=== PATIENT | male | born 1945 | race Caucasian/White ===

== ENCOUNTER → 2017-02-20 | Outpatient (CLI) | payer OTHER, MEDICARE ==
[~2017-02-20] MED LIST: REGADENOSON 0.4 MG/5 ML SYRINGE ONE
== END | disposition home or self-care (01) ==
LOC: CFH 11:48
PROVIDERS: ATTEND Internal Medicine Cardiovascular Disease
DX: R07.9 Chest pain, unspecified (principal); R00.2 Palpitations
CPT/HCPCS: 78452; 93017; A9502; J2785

== ENCOUNTER 2018-02-18 02:12 | Inpatient (IN) | payer OTHER, MEDICARE ==
[~2018-02-18] VITALS: Ht 185.4 cm; Wt 139.3 kg
[2018-02-18] MEDS ORDERED: SODIUM CHLORIDE 0.9% 1,000ML IVBOLUS ONE ×2 (02:30→03:30)
[2018-02-18] MEDS ORDERED: PIPERACILLIN/TAZO/PMX 3.375GM 50 ML IVPB ONE (02:30)
[2018-02-18] MEDS ORDERED: VANCOMYCIN PER PHARMACY IV ONE (02:30)
[2018-02-18] MEDS ORDERED: PIPERACILLIN/TAZO/PMX 3.375GM 50 ML ONE (02:42)
[2018-02-18 02:48] LABS: MEAN CORPUSCULAR HEMOGLOBIN 28.3 pg (27.5-34.5); MEAN CORPUSCULAR HGB CONC 32.7 g/dL (33.2-36.2); MEAN CORPUSCULAR VOLUME 86.4 fL (81-97); MEAN PLATELET VOLUME 8.2 fL (7.4-10.4); PLATELET COUNT 391 x10^3/uL (130-400); RED BLOOD COUNT 5.27 x10^6/uL (4.38-5.82)
[2018-02-18 02:57] LABS: ALANINE AMINOTRANSFERASE 34 U/L (12-78); ALBUMIN 3.4 g/dL (3.4-5.0); ANION GAP 11 mmol/L (5-15); CALCIUM 8.7 mg/dL (8.5-10.1); CHLORIDE 108 mmol/L (98-107); CREATININE 1.99 mg/dL (0.7-1.3)
[2018-02-18 02:59] LABS: MD YES
[2018-02-18] MEDS ORDERED: SENNOSIDES 8.8 MG/5 ML ORAL SOL NG PRN (03:00)
[2018-02-18] MEDS ORDERED: BISACODYL 10 MG SUPP PR PRN (03:00)
[2018-02-18] MEDS ORDERED: PHARMACY MAY ADJ FOR RENAL FX MC SCH (03:00)
[2018-02-18] MEDS ORDERED: VANCOMYCIN 2,500 MG in SODIUM CHLORIDE 0.9% 500 ML IV SCH (03:00)
[2018-02-18] MEDS ORDERED: LACTULOSE 20 GM/30 ML UDC NG PRN (03:00)
[2018-02-18] MEDS ORDERED: VANCOMYCIN 2,500 MG in SODIUM CHLORIDE 0.9% 500 ML IV ONE (03:00)
[2018-02-18] MEDS ORDERED: LIDOCAINE-MPF 1%, 2ML ENDO PRN (03:00)
[2018-02-18] MEDS ORDERED: SENNA/DOCUSATE TABLET NG PRN (03:00)
[2018-02-18 03:02] LABS: ALKALINE PHOSPHATASE 65 U/L (45-117); BAND#(MANUAL) 5.76 x10^3/uL; BANDS%(MANUAL) 17 % (0-7); BILIRUBIN,TOTAL 0.4 mg/dL (0.2-1.0); LYMPH#(MANUAL) 0.68 x10^3/uL (1-3.4); LYMPHS% (MANUAL) 2 % (22-44); MONOS#(MANUAL) 1.02 x10^3/uL (0.3-2.7); MONOS% (MANUAL) 3 % (2-9); SEG#(MANUAL) 26.44 x10^3/uL (1.8-6.8); SEGS% (MANUAL) 78 % (42-75); TOTAL PROTEIN 7.5 g/dL (6.4-8.2)
[2018-02-18 03:03] LABS: ANISOCYTOSIS 1+
[2018-02-18 03:04] LABS: <PLATELET ESTIMATE> ADEQUATE; LARGE PLATELETS 1+
[2018-02-18] MEDS ORDERED: methylPREDNISolone SOD SUCC 40 MG/ML ONE (03:05)
[2018-02-18] MEDS: methylPREDNISolone SOD SUCC 40 MG/ML IV SCH ×3 (03:07→20:18)
[2018-02-18 03:08] LABS: TROPONIN I 0.947 ng/mL (0.000-0.045)
[2018-02-18] MEDS: PROPOFOL 100 ML IV PRN ×6 (03:14→23:15)
[2018-02-18] MEDS: AMPICILLIN/SULBACTAM 3 GM in SODIUM CHLORIDE 0.9% 100 ML IV SCH ×3 (03:23→17:50)
[2018-02-18] MEDS ORDERED: ALLO100T30 PO (03:40)
[2018-02-18] MEDS ORDERED: ROSU10TA PO (03:40)
[2018-02-18] MEDS ORDERED: INSU100V13 SQ (03:40)
[2018-02-18] MEDS ORDERED: ALBU8.5H8 INH (03:40)
[2018-02-18] MEDS ORDERED: FLUT12AE INH (03:40)
[2018-02-18] MEDS ORDERED: FENO145T30 PO (03:40)
[2018-02-18] MEDS ORDERED: METF-163 PO (03:40)
[2018-02-18] MEDS ORDERED: INSU100C5 SQ-INSULIN (03:40)
[2018-02-18] MEDS ORDERED: ASPI-650 PO (03:40)
[2018-02-18] MEDS ORDERED: METO200T47 PO ×2 (03:40)
[2018-02-18] MEDS ORDERED: MULTIVITAMINE (03:40)
[2018-02-18] MEDS ORDERED: SPIR25TA3 PO (03:40)
[2018-02-18] MEDS ORDERED: LISI40TA PO (03:40)
[2018-02-18] MEDS ORDERED: ONDANSETRON 2MG/ML, 2ML IVPush PRN (04:30)
[2018-02-18] MEDS ORDERED: VANCOMYCIN PER PHARMACY MC PRN (04:30)
[2018-02-18] MEDS: SODIUM CHLORIDE 0.9% 1,000ML IV SCH ×2 (04:55→05:43)
[2018-02-18] MEDS ORDERED: MIDAZOLAM 1 MG/ML, 2ML ONE (04:57)
[2018-02-18] MEDS ORDERED: HEPARIN 5,000 UNITS/ML, 1ML ONE (04:58)
[2018-02-18] MEDS ORDERED: MIDAZOLAM 1 MG/ML, 5ML IVPush ONE (05:00)
[2018-02-18] MEDS: HEPARIN 5,000 UNITS/ML, 1ML SQ SCH ×3 (05:04→21:23)
[2018-02-18] MEDS: INSULIN LISPRO 100 UNITS/ML, PEN SQ-INSULIN SCH ×4 (05:36→22:44)
[2018-02-18] MEDS: NOREPINEPHRINE 4 MG in SODIUM CHLORIDE 0.9% 246 ML IV PRN ×2 (06:41→13:41)
[2018-02-18] MEDS ORDERED: PHARMACOKINETIC MONITORING MC PRN (08:30)
[2018-02-18] MEDS ORDERED: PHARMACOKINETIC CONSULTATION MC ONE (08:30)
[2018-02-18] MEDS ORDERED: VASOPRESSIN 100 UNIT in SODIUM CHLORIDE 0.9% 495 ML IV PRN (09:00)
[2018-02-18] MEDS: PANTOPRAZOLE 40 MG IV IVPush SCH (09:33)
[2018-02-18 09:57] LABS: CULTURE INDICATED? YES; MICROSCOPIC INDICATED
[2018-02-18] MEDS: VANCOMYCIN 2,000 MG in SODIUM CHLORIDE 0.9% 500 ML IV SCH (11:03)
[2018-02-18] MEDS ORDERED: PROPOFOL 10 MG/ML, 20ML ONE (14:00)
[2018-02-18] MEDS ORDERED: PROPOFOL 10 MG/ML, 100ML IV ONE (14:00)
[2018-02-18] MEDS: ALBUTEROL/IPRATROPIUM 2.5MG/0.5MG, 3 ML NPPBCONT SCH ×2 (19:30→22:40)
[2018-02-18] MEDS: INSULIN GLARGINE 100 UNITS/ML, PEN SQ-INSULIN SCH (21:22)
[2018-02-18] MEDS: FENTANYL PF 100 MCG/2ML IVPush PRN (23:28)
[2018-02-19] MEDS ORDERED: NOREPINEPHRINE 4 MG in SODIUM CHLORIDE 0.9% 246 ML IV PRN (01:00)
[2018-02-19] MEDS: PROPOFOL 100 ML IV PRN ×3 (01:12→06:08)
[2018-02-19] MEDS: AMPICILLIN/SULBACTAM 3 GM in SODIUM CHLORIDE 0.9% 100 ML IV SCH ×3 (01:44→18:14)
[2018-02-19] MEDS: ALBUTEROL/IPRATROPIUM 2.5MG/0.5MG, 3 ML NPPBCONT SCH ×2 (03:20→07:15)
[2018-02-19] MEDS: FENTANYL PF 100 MCG/2ML IVPush PRN (03:22)
[2018-02-19 04:00] VITALS: BP 124/55
[2018-02-19 04:17] LABS: MEAN CORPUSCULAR HEMOGLOBIN 28.3 pg (27.5-34.5); MEAN CORPUSCULAR HGB CONC 32.9 g/dL (33.2-36.2); MEAN CORPUSCULAR VOLUME 85.9 fL (81-97); MEAN PLATELET VOLUME 8.5 fL (7.4-10.4); PLATELET COUNT 317 x10^3/uL (130-400); RED BLOOD COUNT 4.61 x10^6/uL (4.38-5.82); RED CELL DISTRIBUTION WIDTH 16.3 % (9.4-14.8)
[2018-02-19 04:29] LABS: ANION GAP 9 mmol/L (5-15); CALCIUM 8.5 mg/dL (8.5-10.1); CHLORIDE 113 mmol/L (98-107); CREATININE 1.59 mg/dL (0.7-1.3)
[2018-02-19] MEDS: methylPREDNISolone SOD SUCC 40 MG/ML IV SCH ×2 (05:18→17:56)
[2018-02-19] MEDS: INSULIN LISPRO 100 UNITS/ML, PEN SQ-INSULIN SCH ×4 (05:23→23:37)
[2018-02-19] MEDS: HEPARIN 5,000 UNITS/ML, 1ML SQ SCH ×3 (05:29→20:49)
[2018-02-19 05:36] LABS: MD YES
[2018-02-19 05:39] LABS: BAND#(MANUAL) 2.17 x10^3/uL; BANDS%(MANUAL) 7 % (0-7); LYMPH#(MANUAL) 3.72 x10^3/uL (1-3.4); LYMPHS% (MANUAL) 12 % (22-44); METAMYELOCYTES# (MANUAL) 0.31 x10^3/uL (0-0); METAMYELOCYTES% (MANUAL) 1 % (0-1); MONOS#(MANUAL) 0.62 x10^3/uL (0.3-2.7); MONOS% (MANUAL) 2 % (2-9); SEG#(MANUAL) 24.18 x10^3/uL (1.8-6.8); SEGS% (MANUAL) 78 % (42-75)
[2018-02-19 05:40] LABS: <PLATELET ESTIMATE> ADEQUATE; ANISOCYTOSIS 1+; LARGE PLATELETS 1+
[2018-02-19] MEDS ORDERED: INSULIN GLARGINE 100 UNITS/ML, PEN SQ-INSULIN SCH (07:00)
[2018-02-19] MEDS: PANTOPRAZOLE 40 MG IV IVPush SCH (08:43)
[2018-02-19] MEDS ORDERED: FUROSEMIDE 20 MG/2 ML IV ONE (10:00)
[2018-02-19] MEDS: VANCOMYCIN 2,000 MG in SODIUM CHLORIDE 0.9% 500 ML IV SCH (10:59)
[2018-02-19] MEDS ORDERED: ALBUTEROL/IPRATROPIUM 2.5MG/0.5MG, 3 ML NPPB SCH (11:30)
[2018-02-19] MEDS ORDERED: VANCOMYCIN 2,200 MG in SODIUM CHLORIDE 0.9% 500 ML IV SCH (15:05)
[2018-02-19] MEDS ORDERED: ASPIRIN 325 MG TABLET ONE (17:51)
[2018-02-19] MEDS ORDERED: ASPIRIN 325 MG TABLET EC ONE (17:51)
[2018-02-19] MEDS: ASPIRIN 81 MG TABLET CHEW PO SCH (17:56)
[2018-02-19] MEDS: ALBUTEROL/IPRATROPIUM 2.5MG/0.5MG, 3 ML NPPB SCH (19:38)
[2018-02-19] MEDS: INSULIN GLARGINE 100 UNITS/ML, PEN SQ-INSULIN SCH (20:54)
[2018-02-20] MEDS: AMPICILLIN/SULBACTAM 3 GM in SODIUM CHLORIDE 0.9% 100 ML IV SCH ×4 (02:12→22:24)
[2018-02-20 04:00] VITALS: BP 154/75
[2018-02-20] MEDS: INSULIN LISPRO 100 UNITS/ML, PEN SQ-INSULIN SCH ×4 (04:36→21:24)
[2018-02-20] MEDS: methylPREDNISolone SOD SUCC 40 MG/ML IV SCH ×2 (04:37→16:00)
[2018-02-20 04:39] LABS: MEAN CORPUSCULAR HEMOGLOBIN 28.2 pg (27.5-34.5); MEAN CORPUSCULAR HGB CONC 32.9 g/dL (33.2-36.2); MEAN CORPUSCULAR VOLUME 85.6 fL (81-97); MEAN PLATELET VOLUME 8.7 fL (7.4-10.4); PLATELET COUNT 295 x10^3/uL (130-400); RED BLOOD COUNT 4.49 x10^6/uL (4.38-5.82)
[2018-02-20 04:46] LABS: ANION GAP 7 mmol/L (5-15); CALCIUM 8.8 mg/dL (8.5-10.1); CHLORIDE 105 mmol/L (98-107)
[2018-02-20] MEDS: HEPARIN 5,000 UNITS/ML, 1ML SQ SCH ×3 (05:15→23:39)
[2018-02-20 05:43] LABS: MD YES
[2018-02-20 05:45] LABS: <PLATELET ESTIMATE> ADEQUATE; ANISOCYTOSIS 1+; BAND#(MANUAL) 0.75 x10^3/uL; BANDS%(MANUAL) 3 % (0-7); LYMPHS% (MANUAL) 2 % (22-44); MONOS#(MANUAL) 1.25 x10^3/uL (0.3-2.7); MONOS% (MANUAL) 5 % (2-9); SEG#(MANUAL) 22.41 x10^3/uL (1.8-6.8); SEGS% (MANUAL) 90 % (42-75)
[2018-02-20 05:46] LABS: LARGE PLATELETS 1+
[2018-02-20] MEDS: ALBUTEROL/IPRATROPIUM 2.5MG/0.5MG, 3 ML NPPB SCH ×4 (07:20→19:58)
[2018-02-20] MEDS: PANTOPRAZOLE 40 MG IV IVPush SCH (10:29)
[2018-02-20] MEDS: ASPIRIN 81 MG TABLET CHEW PO SCH (10:30)
[2018-02-20] MEDS ORDERED: VANCOMYCIN 2,200 MG in SODIUM CHLORIDE 0.9% 500 ML IV SCH (11:00)
[2018-02-20 12:02] VITALS: BP 173/78
[2018-02-20 19:15] VITALS: BP 163/90
[2018-02-20] MEDS ORDERED: INSULIN GLARGINE 100 UNITS/ML, PEN SQ-INSULIN SCH (21:00)
[2018-02-20] MEDS ORDERED: hydrALAzine 20 MG/ML, 1ML IV PRN (21:00)
[2018-02-20 22:34] VITALS: BP 144/74
[2018-02-21 00:11] VITALS: BP 157/67
[2018-02-21] MEDS: methylPREDNISolone SOD SUCC 40 MG/ML IV SCH (04:42)
[2018-02-21] MEDS: AMPICILLIN/SULBACTAM 3 GM in SODIUM CHLORIDE 0.9% 100 ML IV SCH ×4 (04:43→22:00)
[2018-02-21 05:48] LABS: MEAN CORPUSCULAR HEMOGLOBIN 28.2 pg (27.5-34.5); MEAN CORPUSCULAR VOLUME 85.6 fL (81-97); MEAN PLATELET VOLUME 8.5 fL (7.4-10.4); PLATELET COUNT 331 x10^3/uL (130-400); RED BLOOD COUNT 5.03 x10^6/uL (4.38-5.82); RED CELL DISTRIBUTION WIDTH 15.6 % (9.4-14.8)
[2018-02-21 05:59] LABS: CHLORIDE 102 mmol/L (98-107)
[2018-02-21 06:08] LABS: ALANINE AMINOTRANSFERASE 44 U/L (12-78); ALBUMIN 2.8 g/dL (3.4-5.0); ALKALINE PHOSPHATASE 66 U/L (45-117); ANION GAP 8 mmol/L (5-15); BILIRUBIN,TOTAL 0.7 mg/dL (0.2-1.0); CREATININE 1.09 mg/dL (0.7-1.3); TOTAL PROTEIN 7.2 g/dL (6.4-8.2)
[2018-02-21 06:09] LABS: BASOPHILS # (AUTO) 0.03 x10^3/uL (0-0.1); BASOPHILS % (AUTO) 0 % (0-1); EOSINOPHILS # (AUTO) 0.01 x10^3/uL (0-0.4); EOSINOPHILS % (AUTO) 0 % (1-7); LYMPHOCYTES # (AUTO) 1.53 x10^3/uL (1-3.4); LYMPHOCYTES % (AUTO) 7 % (22-44); MD SCAN; MONOCYTES # (AUTO) 0.95 x10^3/uL (0.2-0.8); MONOCYTES % (AUTO) 5 % (2-9); NEUTROPHILS # (AUTO) 18.52 x10^3/uL (1.8-6.8); NEUTROPHILS % (AUTO) 88 % (42-75)
[2018-02-21 07:09] VITALS: BP 126/66
[2018-02-21] MEDS: ALBUTEROL/IPRATROPIUM 2.5MG/0.5MG, 3 ML NPPB SCH ×4 (07:10→18:46)
[2018-02-21] MEDS: PANTOPRAZOLE 40 MG IV IVPush SCH (08:39)
[2018-02-21] MEDS: INSULIN LISPRO 100 UNITS/ML, PEN SQ-INSULIN SCH ×4 (08:39→20:21)
[2018-02-21] MEDS: HEPARIN 5,000 UNITS/ML, 1ML SQ SCH ×2 (08:40→16:27)
[2018-02-21] MEDS: ASPIRIN 81 MG TABLET CHEW PO SCH (08:40)
[2018-02-21 08:46] VITALS: BP 184/69
[2018-02-21] MEDS ORDERED: metFORMIN 500 MG TABLET PO SCH (10:30)
[2018-02-21] MEDS ORDERED: POLYETHYLENE GLYCOL 17 GM PACKET PO PRN (10:30)
[2018-02-21] MEDS: TEMPLATE NON-FORMULARY MED. (Fluticasone Propionate (Flovent Hfa 110 Mcg/Inh) 1 PUFF) INH SCH (10:30)
[2018-02-21] MEDS: ASPIRIN 325 MG TABLET EC PO SCH (10:30)
[2018-02-21] MEDS ORDERED: INSULIN GLARGINE 100 UNITS/ML, PEN SQ-INSULIN SCH ×2 (10:30→11:00)
[2018-02-21] MEDS: SENNA/DOCUSATE TABLET PO SCH (10:30)
[2018-02-21] MEDS ORDERED: BISACODYL 10 MG SUPP PR PRN (10:30)
[2018-02-21] MEDS: METOPROLOL SUCCINATE 100 MG TAB.ER.24H PO SCH (12:52)
[2018-02-21] MEDS: FUROSEMIDE 20 MG TABLET PO SCH (12:52)
[2018-02-21] MEDS: LISINOPRIL 20 MG TABLET PO SCH (12:52)
[2018-02-21] MEDS: ALLOPURINOL 300 MG TABLET PO SCH (12:52)
[2018-02-21] MEDS: SPIRONOLACTONE 25 MG TABLET PO SCH ×2 (12:52→20:22)
[2018-02-21] MEDS: FENOFIBRATE 145 MG TABLET PO SCH (12:52)
[2018-02-21 15:01] VITALS: BP 138/68
[2018-02-21 19:00] VITALS: BP_SYST 159; BP_SYST 191; BP_DIAS 69; BP_DIAS 72
[2018-02-21] MEDS: INSULIN GLARGINE 100 UNITS/ML, PEN SQ-INSULIN SCH (20:22)
[2018-02-21] MEDS: TEMPLATE NON-FORMULARY MED. (Rosuvastatin Calcium** (Crestor**) 10 MG) PO SCH (20:22)
[2018-02-22] MEDS: HEPARIN 5,000 UNITS/ML, 1ML SQ SCH ×3 (00:23→17:53)
[2018-02-22 00:24] VITALS: BP 143/82
[2018-02-22] MEDS: AMPICILLIN/SULBACTAM 3 GM in SODIUM CHLORIDE 0.9% 100 ML IV SCH ×4 (04:16→23:48)
[2018-02-22] MEDS: ALBUTEROL/IPRATROPIUM 2.5MG/0.5MG, 3 ML NPPB SCH ×4 (06:00→18:54)
[2018-02-22 06:16] LABS: MEAN CORPUSCULAR HEMOGLOBIN 27.9 pg (27.5-34.5); MEAN CORPUSCULAR HGB CONC 32.9 g/dL (33.2-36.2); MEAN CORPUSCULAR VOLUME 84.9 fL (81-97); MEAN PLATELET VOLUME 8.7 fL (7.4-10.4); PLATELET COUNT 370 x10^3/uL (130-400); RED CELL DISTRIBUTION WIDTH 15.4 % (9.4-14.8)
[2018-02-22 06:29] LABS: CHLORIDE 100 mmol/L (98-107)
[2018-02-22 06:36] LABS: ANION GAP 10 mmol/L (5-15); CALCIUM 9.5 mg/dL (8.5-10.1); CREATININE 1.28 mg/dL (0.7-1.3)
[2018-02-22 06:40] LABS: MD YES
[2018-02-22 06:42] LABS: <PLATELET ESTIMATE> ADEQUATE; ANISOCYTOSIS 1+; LARGE PLATELETS 1+; LYMPH#(MANUAL) 2.29 x10^3/uL (1-3.4); LYMPHS% (MANUAL) 10 % (22-44); METAMYELOCYTES# (MANUAL) 0.46 x10^3/uL (0-0); METAMYELOCYTES% (MANUAL) 2 % (0-1); MONOS#(MANUAL) 1.15 x10^3/uL (0.3-2.7); MONOS% (MANUAL) 5 % (2-9); SEG#(MANUAL) 19.01 x10^3/uL (1.8-6.8); SEGS% (MANUAL) 83 % (42-75)
[2018-02-22 06:43] LABS: POLYCHROMASIA 1+
[2018-02-22] MEDS ORDERED: REGADENOSON 0.4 MG/5 ML SYRINGE ONE (08:00)
[2018-02-22] MEDS: INSULIN GLARGINE 100 UNITS/ML, PEN SQ-INSULIN SCH ×3 (09:00→21:07)
[2018-02-22] MEDS: LISINOPRIL 20 MG TABLET PO SCH ×2 (09:00→11:55)
[2018-02-22] MEDS: SENNA/DOCUSATE TABLET PO SCH (09:00)
[2018-02-22] MEDS: TEMPLATE NON-FORMULARY MED. (Fluticasone Propionate (Flovent Hfa 110 Mcg/Inh) 1 PUFF) INH SCH (09:00)
[2018-02-22 09:30] VITALS: BP 143/72
[2018-02-22] MEDS ORDERED: INSU100I13 SQ-INSULIN (10:16)
[2018-02-22] MEDS ORDERED: BISA10SU65 PR (10:16)
[2018-02-22] MEDS ORDERED: PRED5TAB PO (10:16)
[2018-02-22] MEDS ORDERED: FURO20TA3 PO (10:16)
[2018-02-22] MEDS ORDERED: INSU100I11 SQ-INSULIN (10:16)
[2018-02-22] MEDS ORDERED: SENN1TAB7 PO (10:16)
[2018-02-22] MEDS ORDERED: IPRA3AMP NPPB (10:16)
[2018-02-22] MEDS ORDERED: AMOX1TAB64 PO (10:18)
[2018-02-22] MEDS ORDERED: INSULIN GLARGINE 100 UNITS/ML, PEN SQ-INSULIN SCH ×2 (10:30→21:00)
[2018-02-22] MEDS: INSULIN LISPRO 100 UNITS/ML, PEN SQ-INSULIN SCH ×4 (11:54→21:06)
[2018-02-22] MEDS: METOPROLOL SUCCINATE 100 MG TAB.ER.24H PO SCH (11:55)
[2018-02-22] MEDS: FENOFIBRATE 145 MG TABLET PO SCH (11:56)
[2018-02-22] MEDS: ASPIRIN 325 MG TABLET EC PO SCH (11:56)
[2018-02-22] MEDS: SPIRONOLACTONE 25 MG TABLET PO SCH ×2 (11:56→21:07)
[2018-02-22] MEDS: FUROSEMIDE 20 MG TABLET PO SCH (11:56)
[2018-02-22] MEDS: PANTOPRAZOLE 40 MG IV IVPush SCH (11:57)
[2018-02-22] MEDS: ALLOPURINOL 300 MG TABLET PO SCH (12:10)
[2018-02-22 14:37] VITALS: BP 160/68
[2018-02-22 20:00] VITALS: BP 122/60
[2018-02-22] MEDS: TEMPLATE NON-FORMULARY MED. (Rosuvastatin Calcium** (Crestor**) 10 MG) PO SCH (20:59)
[2018-02-23 02:00] VITALS: BP 127/73
[2018-02-23] MEDS: HEPARIN 5,000 UNITS/ML, 1ML SQ SCH ×4 (03:12→21:01)
[2018-02-23] MEDS: ALBUTEROL/IPRATROPIUM 2.5MG/0.5MG, 3 ML NPPB SCH ×4 (06:00→19:13)
[2018-02-23] MEDS: AMPICILLIN/SULBACTAM 3 GM in SODIUM CHLORIDE 0.9% 100 ML IV SCH ×3 (06:05→17:35)
[2018-02-23] MEDS: TEMPLATE NON-FORMULARY MED. (Fluticasone Propionate (Flovent Hfa 110 Mcg/Inh) 1 PUFF) INH SCH (09:00)
[2018-02-23 09:31] VITALS: BP 133/65
[2018-02-23] MEDS: SENNA/DOCUSATE TABLET PO SCH (09:43)
[2018-02-23] MEDS: ASPIRIN 325 MG TABLET EC PO SCH (09:44)
[2018-02-23] MEDS: ALLOPURINOL 300 MG TABLET PO SCH (09:44)
[2018-02-23] MEDS: FUROSEMIDE 20 MG TABLET PO SCH (09:44)
[2018-02-23] MEDS: METOPROLOL SUCCINATE 100 MG TAB.ER.24H PO SCH (09:44)
[2018-02-23] MEDS: FENOFIBRATE 145 MG TABLET PO SCH (09:44)
[2018-02-23] MEDS: SPIRONOLACTONE 25 MG TABLET PO SCH ×2 (09:45→21:01)
[2018-02-23] MEDS: PANTOPROZOLE 40MG TABLET PO SCH (09:45)
[2018-02-23] MEDS: INSULIN GLARGINE 100 UNITS/ML, PEN SQ-INSULIN SCH ×2 (09:46→21:03)
[2018-02-23] MEDS: INSULIN LISPRO 100 UNITS/ML, PEN SQ-INSULIN SCH ×4 (09:46→21:02)
[2018-02-23 13:39] VITALS: BP 123/76
[2018-02-23 20:42] VITALS: BP 124/68
[2018-02-23] MEDS: TEMPLATE NON-FORMULARY MED. (Rosuvastatin Calcium** (Crestor**) 10 MG) PO SCH (21:00)
[2018-02-24] MEDS: AMPICILLIN/SULBACTAM 3 GM in SODIUM CHLORIDE 0.9% 100 ML IV SCH ×5 (00:02→23:47)
[2018-02-24 01:25] VITALS: BP 131/73
[2018-02-24 05:27] LABS: MEAN CORPUSCULAR HEMOGLOBIN 27.9 pg (27.5-34.5); MEAN CORPUSCULAR HGB CONC 32.7 g/dL (33.2-36.2); MEAN CORPUSCULAR VOLUME 85.3 fL (81-97); PLATELET COUNT 374 x10^3/uL (130-400); RED BLOOD COUNT 5.66 x10^6/uL (4.38-5.82); RED CELL DISTRIBUTION WIDTH 15.8 % (9.4-14.8)
[2018-02-24 05:32] LABS: ANION GAP 10 mmol/L (5-15); CHLORIDE 96 mmol/L (98-107)
[2018-02-24 05:35] LABS: CALCIUM 9.6 mg/dL (8.5-10.1)
[2018-02-24] MEDS: ALBUTEROL/IPRATROPIUM 2.5MG/0.5MG, 3 ML NPPB SCH ×4 (06:00→21:00)
[2018-02-24] MEDS: HEPARIN 5,000 UNITS/ML, 1ML SQ SCH ×3 (06:16→23:13)
[2018-02-24 06:55] VITALS: BP 134/61
[2018-02-24 07:06] LABS: MD YES
[2018-02-24 07:08] LABS: ANISOCYTOSIS 1+; BAND#(MANUAL) 1.29 x10^3/uL; BANDS%(MANUAL) 5 % (0-7); EOS#(MANUAL) 0.51 x10^3/uL (0.0-0.4); EOS% (MANUAL) 2 % (1-7); LYMPH#(MANUAL) 3.34 x10^3/uL (1-3.4); LYMPHS% (MANUAL) 13 % (22-44); METAMYELOCYTES# (MANUAL) 0.26 x10^3/uL (0-0); METAMYELOCYTES% (MANUAL) 1 % (0-1); MONOS#(MANUAL) 0.77 x10^3/uL (0.3-2.7); MONOS% (MANUAL) 3 % (2-9); NRBC % (MANUAL) 1 % (0-1); POLYCHROMASIA 1+; SEG#(MANUAL) 19.53 x10^3/uL (1.8-6.8); SEGS% (MANUAL) 76 % (42-75)
[2018-02-24 07:09] LABS: <PLATELET ESTIMATE> ADEQUATE; LARGE PLATELETS 1+
[2018-02-24] MEDS: INSULIN LISPRO 100 UNITS/ML, PEN SQ-INSULIN SCH ×4 (08:59→20:24)
[2018-02-24] MEDS ORDERED: FUROSEMIDE 20 MG/2 ML IV ONE (12:00)
[2018-02-24] MEDS: TEMPLATE NON-FORMULARY MED. (Fluticasone Propionate (Flovent Hfa 110 Mcg/Inh) 1 PUFF) INH SCH (12:21)
[2018-02-24] MEDS: FUROSEMIDE 20 MG TABLET PO SCH (12:21)
[2018-02-24] MEDS: SENNA/DOCUSATE TABLET PO SCH (12:33)
[2018-02-24] MEDS: PANTOPROZOLE 40MG TABLET PO SCH (12:33)
[2018-02-24] MEDS: METOPROLOL SUCCINATE 100 MG TAB.ER.24H PO SCH (12:33)
[2018-02-24] MEDS: FENOFIBRATE 145 MG TABLET PO SCH (12:33)
[2018-02-24] MEDS: ALLOPURINOL 300 MG TABLET PO SCH (12:33)
[2018-02-24] MEDS: ASPIRIN 325 MG TABLET EC PO SCH (12:34)
[2018-02-24] MEDS: SPIRONOLACTONE 25 MG TABLET PO SCH ×2 (12:34→20:26)
[2018-02-24] MEDS: LISINOPRIL 20 MG TABLET PO SCH (12:34)
[2018-02-24] MEDS: INSULIN GLARGINE 100 UNITS/ML, PEN SQ-INSULIN SCH ×2 (13:26→20:25)
[2018-02-24 14:31] VITALS: BP 98/57
[2018-02-24 16:12] VITALS: BP 116/67
[2018-02-24 19:20] VITALS: BP 120/67
[2018-02-24] MEDS: TEMPLATE NON-FORMULARY MED. (Rosuvastatin Calcium** (Crestor**) 10 MG) PO SCH (20:27)
[2018-02-25 02:00] VITALS: BP 117/72
[2018-02-25 05:21] LABS: MEAN CORPUSCULAR HGB CONC 32.7 g/dL (33.2-36.2); MEAN CORPUSCULAR VOLUME 85.8 fL (81-97); MEAN PLATELET VOLUME 8.7 fL (7.4-10.4); PLATELET COUNT 326 x10^3/uL (130-400); RED BLOOD COUNT 5.71 x10^6/uL (4.38-5.82); RED CELL DISTRIBUTION WIDTH 15.7 % (9.4-14.8)
[2018-02-25 05:32] LABS: CHLORIDE 100 mmol/L (98-107)
[2018-02-25 05:40] LABS: ANION GAP 9 mmol/L (5-15); CALCIUM 9.4 mg/dL (8.5-10.1); CREATININE 1.37 mg/dL (0.7-1.3)
[2018-02-25 05:47] LABS: MD YES
[2018-02-25 05:48] LABS: BAND#(MANUAL) 0.61 x10^3/uL; BANDS%(MANUAL) 3 % (0-7); EOS#(MANUAL) 0.41 x10^3/uL (0.0-0.4); EOS% (MANUAL) 2 % (1-7); LYMPH#(MANUAL) 3.45 x10^3/uL (1-3.4); LYMPHS% (MANUAL) 17 % (22-44); METAMYELOCYTES% (MANUAL) 1 % (0-1); MONOS#(MANUAL) 0.41 x10^3/uL (0.3-2.7); MONOS% (MANUAL) 2 % (2-9); SEG#(MANUAL) 15.23 x10^3/uL (1.8-6.8); SEGS% (MANUAL) 75 % (42-75)
[2018-02-25 05:49] LABS: <PLATELET ESTIMATE> ADEQUATE; ANISOCYTOSIS 1+; LARGE PLATELETS 1+; POLYCHROMASIA 1+
[2018-02-25] MEDS: AMPICILLIN/SULBACTAM 3 GM in SODIUM CHLORIDE 0.9% 100 ML IV SCH ×3 (06:13→17:31)
[2018-02-25] MEDS: HEPARIN 5,000 UNITS/ML, 1ML SQ SCH ×3 (06:13→21:31)
[2018-02-25] MEDS: PANTOPROZOLE 40MG TABLET PO SCH (07:42)
[2018-02-25 08:00] VITALS: BP 101/65
[2018-02-25] MEDS: INSULIN LISPRO 100 UNITS/ML, PEN SQ-INSULIN SCH ×4 (08:10→21:29)
[2018-02-25] MEDS: INSULIN GLARGINE 100 UNITS/ML, PEN SQ-INSULIN SCH ×2 (08:10→21:28)
[2018-02-25] MEDS: SPIRONOLACTONE 25 MG TABLET PO SCH (08:11)
[2018-02-25] MEDS: METOPROLOL SUCCINATE 100 MG TAB.ER.24H PO SCH (08:11)
[2018-02-25] MEDS: FUROSEMIDE 20 MG TABLET PO SCH (08:11)
[2018-02-25] MEDS: FENOFIBRATE 145 MG TABLET PO SCH (08:11)
[2018-02-25] MEDS: SENNA/DOCUSATE TABLET PO SCH (08:11)
[2018-02-25] MEDS: LISINOPRIL 20 MG TABLET PO SCH (08:11)
[2018-02-25] MEDS: ALLOPURINOL 300 MG TABLET PO SCH (08:11)
[2018-02-25] MEDS: ASPIRIN 325 MG TABLET EC PO SCH (08:12)
[2018-02-25] MEDS: TEMPLATE NON-FORMULARY MED. (Fluticasone Propionate (Flovent Hfa 110 Mcg/Inh) 1 PUFF) INH SCH (08:12)
[2018-02-25] MEDS ORDERED: SODIUM CHLORIDE 0.9% 1,000 ML IV ONE (08:22)
[2018-02-25] MEDS: ALBUTEROL/IPRATROPIUM 2.5MG/0.5MG, 3 ML NPPB SCH ×2 (08:50→11:00)
[2018-02-25 11:03] VITALS: BP 101/65
[2018-02-25 13:55] VITALS: BP 98/60
[2018-02-25 19:56] VITALS: BP 122/62
[2018-02-25] MEDS: TEMPLATE NON-FORMULARY MED. (Rosuvastatin Calcium** (Crestor**) 10 MG) PO SCH (21:00)
[2018-02-26 01:55] VITALS: BP 94/56
[2018-02-26] MEDS: AMPICILLIN/SULBACTAM 3 GM in SODIUM CHLORIDE 0.9% 100 ML IV SCH ×3 (02:00→20:15)
[2018-02-26 05:24] LABS: MEAN CORPUSCULAR HGB CONC 32.4 g/dL (33.2-36.2); MEAN CORPUSCULAR VOLUME 86.3 fL (81-97); MEAN PLATELET VOLUME 8.8 fL (7.4-10.4); PLATELET COUNT 349 x10^3/uL (130-400); PROTHROMBIN TIME 10.4 Seconds (9.6-11.5); RED BLOOD COUNT 5.71 x10^6/uL (4.38-5.82); RED CELL DISTRIBUTION WIDTH 15.9 % (9.4-14.8)
[2018-02-26 05:31] LABS: ANION GAP 8 mmol/L (5-15); CALCIUM 8.8 mg/dL (8.5-10.1); CHLORIDE 104 mmol/L (98-107)
[2018-02-26 05:33] LABS: CREATININE 1.26 mg/dL (0.7-1.3)
[2018-02-26 06:09] LABS: MD YES
[2018-02-26 06:11] LABS: BAND#(MANUAL) 0.19 x10^3/uL; BANDS%(MANUAL) 1 % (0-7); EOS#(MANUAL) 0.58 x10^3/uL (0.0-0.4); EOS% (MANUAL) 3 % (1-7); LYMPH#(MANUAL) 2.72 x10^3/uL (1-3.4); LYMPHS% (MANUAL) 14 % (22-44); MONOS#(MANUAL) 0.78 x10^3/uL (0.3-2.7); MONOS% (MANUAL) 4 % (2-9); MYELOCYTES# (MANUAL) 0.19 x10^3/uL (0-0); MYELOCYTES% (MANUAL) 1 % (0-0); SEG#(MANUAL) 14.94 x10^3/uL (1.8-6.8); SEGS% (MANUAL) 77 % (42-75)
[2018-02-26 06:13] LABS: <PLATELET ESTIMATE> ADEQUATE; ANISOCYTOSIS 1+; LARGE PLATELETS 1+; POLYCHROMASIA 1+
[2018-02-26] MEDS: HEPARIN 5,000 UNITS/ML, 1ML SQ SCH ×3 (06:49→22:36)
[2018-02-26] MEDS: INSULIN GLARGINE 100 UNITS/ML, PEN SQ-INSULIN SCH ×2 (07:53→21:27)
[2018-02-26] MEDS: FENOFIBRATE 145 MG TABLET PO SCH (08:06)
[2018-02-26] MEDS: INSULIN LISPRO 100 UNITS/ML, PEN SQ-INSULIN SCH ×4 (08:06→21:26)
[2018-02-26] MEDS: METOPROLOL SUCCINATE 100 MG TAB.ER.24H PO SCH (08:07)
[2018-02-26] MEDS: ASPIRIN 325 MG TABLET EC PO SCH (08:07)
[2018-02-26] MEDS: FUROSEMIDE 20 MG TABLET PO SCH (08:07)
[2018-02-26] MEDS: ALLOPURINOL 300 MG TABLET PO SCH (08:07)
[2018-02-26] MEDS: LISINOPRIL 20 MG TABLET PO SCH (08:08)
[2018-02-26] MEDS: SENNA/DOCUSATE TABLET PO SCH (08:08)
[2018-02-26] MEDS: PANTOPROZOLE 40MG TABLET PO SCH (08:08)
[2018-02-26] MEDS: TEMPLATE NON-FORMULARY MED. (Fluticasone Propionate (Flovent Hfa 110 Mcg/Inh) 1 PUFF) INH SCH (08:09)
[2018-02-26 08:26] VITALS: BP 133/76
[2018-02-26] MEDS ORDERED: SODIUM CHLORIDE 0.9% 1,000ML IVBOLUS ONE (09:30)
[2018-02-26] MEDS ORDERED: ALBUTEROL/IPRATROPIUM 2.5MG/0.5MG, 3 ML NPPB PRN (11:00)
[2018-02-26 12:34] VITALS: BP 117/76
[2018-02-26] MEDS ORDERED: TICAGRELOR 90 MG TABLET ONE (14:10)
[2018-02-26] MEDS ORDERED: VERAPAMIL 2.5 MG/ML, 2ML ONE (14:10)
[2018-02-26] MEDS ORDERED: MIDAZOLAM 1 MG/ML, 5ML ONE (14:10)
[2018-02-26] MEDS ORDERED: FENTANYL PF 100 MCG/2ML ONE (14:10)
[2018-02-26] MEDS ORDERED: HEPARIN 1,000 UNITS/ML, 10ML ONE (14:10)
[2018-02-26] MEDS ORDERED: BIVALIRUDIN 250 MG ONE ×2 (14:10→15:17)
[2018-02-26] MEDS ORDERED: BIVALIRUDIN 250 MG in DEXTROSE 5% 50 ML IV SCH (15:21)
[2018-02-26] MEDS: SODIUM CHLORIDE 0.9% 1,000 ML IV SCH (15:21)
[2018-02-26] MEDS ORDERED: ASPIRIN 325 MG TABLET EC ONE (15:23)
[2018-02-26] MEDS ORDERED: BIVALIRUDIN 500 MG in DEXTROSE 5% 100 ML IV SCH (16:09)
[2018-02-26 19:56] VITALS: BP 121/58
[2018-02-26] MEDS ORDERED: ATORVASTATIN 40 MG TABLET PO SCH (21:00)
[2018-02-26] MEDS: TICAGRELOR 90 MG TABLET PO SCH (21:15)
[2018-02-26] MEDS: TEMPLATE NON-FORMULARY MED. (Rosuvastatin Calcium** (Crestor**) 10 MG) PO SCH (21:15)
[2018-02-27 00:16] VITALS: BP 100/63
[2018-02-27] MEDS: AMPICILLIN/SULBACTAM 3 GM in SODIUM CHLORIDE 0.9% 100 ML IV SCH ×3 (02:06→14:59)
[2018-02-27] MEDS: SODIUM CHLORIDE 0.9% 1,000 ML IV SCH ×3 (02:06→15:21)
[2018-02-27] MEDS ORDERED: IBUPROFEN 200 MG TABLET ONE (02:46)
[2018-02-27] MEDS ORDERED: IBUPROFEN 200 MG TABLET PO PRN (03:00)
[2018-02-27 04:41] LABS: ALBUMIN 2.8 g/dL (3.4-5.0); ANION GAP 8 mmol/L (5-15); CALCIUM 8.9 mg/dL (8.5-10.1); CHLORIDE 103 mmol/L (98-107); CHOLESTEROL, TOTAL 167 mg/dL (140-239); CREATININE 1.25 mg/dL (0.7-1.3); TRIGLYCERIDES 204 mg/dL (50-200); VLDL CHOLESTEROL 41 mg/dL (0-25)
[2018-02-27 04:43] LABS: CHOL/HDL RATIO 5.1; HDL CHOL % 20 % (26-37); HDL CHOLESTEROL (DIRECT) 33 mg/dL (40-60); LDL CHOLESTEROL,CALCULATED 93 mg/dL (54-169); LDL/HDL RATIO 2.8 (0.5-3.0)
[2018-02-27] MEDS: HEPARIN 5,000 UNITS/ML, 1ML SQ SCH ×2 (06:43→14:53)
[2018-02-27 07:45] VITALS: BP 122/72
[2018-02-27] MEDS: INSULIN LISPRO 100 UNITS/ML, PEN SQ-INSULIN SCH ×2 (08:38→11:59)
[2018-02-27] MEDS: PANTOPROZOLE 40MG TABLET PO SCH (08:42)
[2018-02-27] MEDS: TICAGRELOR 90 MG TABLET PO SCH (08:44)
[2018-02-27] MEDS: LISINOPRIL 20 MG TABLET PO SCH (08:47)
[2018-02-27] MEDS: FUROSEMIDE 20 MG TABLET PO SCH (08:47)
[2018-02-27] MEDS: METOPROLOL SUCCINATE 100 MG TAB.ER.24H PO SCH (08:48)
[2018-02-27] MEDS: FENOFIBRATE 145 MG TABLET PO SCH (08:49)
[2018-02-27] MEDS: ALLOPURINOL 300 MG TABLET PO SCH (08:50)
[2018-02-27] MEDS: INSULIN GLARGINE 100 UNITS/ML, PEN SQ-INSULIN SCH (08:52)
[2018-02-27] MEDS: SENNA/DOCUSATE TABLET PO SCH (09:00)
[2018-02-27] MEDS ORDERED: ASPIRIN 81 MG TABLET EC PO SCH (09:00)
[2018-02-27] MEDS: TEMPLATE NON-FORMULARY MED. (Fluticasone Propionate (Flovent Hfa 110 Mcg/Inh) 1 PUFF) INH SCH (09:00)
[2018-02-27] MEDS ORDERED: TICA90TA PO (11:00)
[2018-02-27] MEDS ORDERED: ASPI-621 PO (11:02)
[2018-02-27 13:48] VITALS: BP 117/69
== END 2018-02-27 16:52 | DRG 853 ==
LOC: ED 02:55 → EDIP 03:25 → CCU 08:06 → 4EST 02-20 11:35 → 4WST 02-22 08:37 → 5SO 02-26 16:13
PROVIDERS: ADMIT Internal Medicine; ATTEND Internal Medicine
PROC: 5A1945Z Respiratory Ventilation, 24-96 Consecutive Hours (ICD-10-PCS; 2018-02-18)
PROC: 0T9B70Z Drainage of Bladder with Drainage Device, Via Natural or Artificial Opening (ICD-10-PCS; 2018-02-18)
PROC: 0BH17EZ Insertion of Endotracheal Airway into Trachea, Via Natural or Artificial Opening (ICD-10-PCS; 2018-02-18)
PROC: 02HV33Z Insertion of Infusion Device into Superior Vena Cava, Percutaneous Approach (ICD-10-PCS; 2018-02-18)
PROC: 027135Z Dilation of Coronary Artery, Two Arteries with Two Drug-eluting Intraluminal Devices, Percutaneous Approach (ICD-10-PCS; principal; 2018-02-26)
PROC: 4A023N7 Measurement of Cardiac Sampling and Pressure, Left Heart, Percutaneous Approach (ICD-10-PCS; 2018-02-26)
PROC: B2111ZZ Fluoroscopy of Multiple Coronary Arteries using Low Osmolar Contrast (ICD-10-PCS; 2018-02-26)
PROC: B2151ZZ Fluoroscopy of Left Heart using Low Osmolar Contrast (ICD-10-PCS; 2018-02-26)
DX: A41.9 Sepsis, unspecified organism (principal); R65.21 Severe sepsis with septic shock; J96.21 Acute and chronic respiratory failure with hypoxia; I21.A1 Myocardial infarction type 2; N17.0 Acute kidney failure with tubular necrosis; G62.81 Critical illness polyneuropathy; I11.0 Hypertensive heart disease with heart failure; J15.9 Unspecified bacterial pneumonia; I42.9 Cardiomyopathy, unspecified; I50.20 Unspecified systolic (congestive) heart failure; E66.01 Morbid (severe) obesity due to excess calories; L03.116 Cellulitis of left lower limb; Z68.41 Body mass index [BMI] 40.0-44.9, adult; J44.0 Chronic obstructive pulmonary disease with (acute) lower respiratory infection; J98.11 Atelectasis; Z99.11 Dependence on respirator [ventilator] status; I25.10 Atherosclerotic heart disease of native coronary artery without angina pectoris; E66.9 Obesity, unspecified; E11.65 Type 2 diabetes mellitus with hyperglycemia; E78.00 Pure hypercholesterolemia, unspecified; E78.5 Hyperlipidemia, unspecified; M10.9 Gout, unspecified; I45.9 Conduction disorder, unspecified; Z79.4 Long term (current) use of insulin; Z79.51 Long term (current) use of inhaled steroids; Z79.82 Long term (current) use of aspirin; Z87.891 Personal history of nicotine dependence; Z95.0 Presence of cardiac pacemaker; Z95.5 Presence of coronary angioplasty implant and graft; Z88.6 Allergy status to analgesic agent; Z88.8 Allergy status to other drugs, medicaments and biological substances
CPT/HCPCS: 36415; 36556; 36600; 70450; 70551; 71045; 78452; 80048; 80053; 80061; 81001; 82040; 82533; 82803; 82947; 82962; 83036; 83605; 83735; 83880; 84100; 84145; 84478; 84484; 85025; 85610; 87040; 87070; 87081; 87086; 87147; 87205; 93005; 93017; 93458; 93970; 94002; 94003; 94640; 96360; 99156; 99157; C1769; C1894; C8929; C9600; J0295; J0583; J1644; J2250; J2704; J2785; J3010; J3370; J7620; A9502; C1725; C1874; C1887; C9113; C9898; J0360; J1815; J1940; J2920; J7030; J7040; J7050; J7512; Q9967

== ENCOUNTER 2018-03-10 01:22 | Inpatient (IN) | payer OTHER, MEDICARE ==
[~2018-03-10] VITALS: Ht 195.6 cm; Wt 132.2 kg
[~2018-03-10 01:22] MED LIST changes: +ALBU8.5H8 INH; +ALLO100T30 PO; +AMOX1TAB64 PO; +ASPI-621 PO; +ASPI-650 PO; +BISA10SU65 PR; +FENO145T30 PO; +FLUT12AE INH; +FURO20TA3 PO; +INSU100C5 SQ-INSULIN; +INSU100I11 SQ-INSULIN; +INSU100I13 SQ-INSULIN; +INSU100V13 SQ; +IPRA3AMP NPPB; +LISI40TA PO; +METF-163 PO; +METO200T47 PO; +MULTIVITAMINE; +PRED5TAB PO; -REGADENOSON 0.4 MG/5 ML SYRINGE ONE; +ROSU10TA PO; +SENN1TAB7 PO; +SPIR25TA3 PO; +TICA90TA PO
[2018-03-10] MEDS ORDERED: SODIUM CHLORIDE FLUSH 10ML SYR IVF ONE (02:00)
[2018-03-10 02:14] LABS: MEAN CORPUSCULAR HEMOGLOBIN 28.3 pg (27.5-34.5); MEAN CORPUSCULAR VOLUME 85.7 fL (81-97); PLATELET COUNT 304 x10^3/uL (130-400); RED BLOOD COUNT 5.29 x10^6/uL (4.38-5.82); RED CELL DISTRIBUTION WIDTH 16.5 % (9.4-14.8)
[2018-03-10 02:22] LABS: INTERNATIONAL NORMALIZED RATIO 1.09 (0.93-1.1); PROTHROMBIN TIME 11.3 Seconds (9.6-11.5)
[2018-03-10 02:26] LABS: ALANINE AMINOTRANSFERASE 25 U/L (12-78); ANION GAP 10 mmol/L (5-15); CALCIUM 10.2 mg/dL (8.5-10.1); CHLORIDE 105 mmol/L (98-107); CREATININE 2.75 mg/dL (0.7-1.3)
[2018-03-10 02:30] LABS: ALKALINE PHOSPHATASE 71 U/L (45-117); BILIRUBIN,TOTAL 0.7 mg/dL (0.2-1.0); TOTAL PROTEIN 7.9 g/dL (6.4-8.2)
[2018-03-10] MEDS ORDERED: SODIUM CHLORIDE 0.9% 1,000 ML IV ONE ×2 (02:37→03:29)
[2018-03-10 02:57] LABS: MD YES
[2018-03-10 03:00] LABS: ANISOCYTOSIS 1+; BAND#(MANUAL) 0.36 x10^3/uL; BANDS%(MANUAL) 1 % (0-7); LYMPH#(MANUAL) 1.81 x10^3/uL (1-3.4); LYMPHS% (MANUAL) 5 % (22-44); METAMYELOCYTES# (MANUAL) 0.36 x10^3/uL (0-0); METAMYELOCYTES% (MANUAL) 1 % (0-1); MONOS#(MANUAL) 2.53 x10^3/uL (0.3-2.7); MONOS% (MANUAL) 7 % (2-9); POLYCHROMASIA 1+; REACTIVE LYMPHS # (MANUAL) 0.36 x10^3/uL (0-0); REACTIVE LYMPHS % (MANUAL) 1 % (0-0); SEG#(MANUAL) 30.77 x10^3/uL (1.8-6.8); SEGS% (MANUAL) 85 % (42-75)
[2018-03-10 03:01] LABS: <PLATELET ESTIMATE> ADEQUATE
[2018-03-10 03:02] LABS: LARGE PLATELETS 1+
[2018-03-10] MEDS ORDERED: SODIUM CHLORIDE FLUSH 10ML SYR IVF PRN (03:30)
[2018-03-10] MEDS ORDERED: INSU100I17 INJ (03:54)
[2018-03-10] MEDS ORDERED: INSU100I28 INJ (03:54)
[2018-03-10] MEDS ORDERED: TICA90TA PO (03:54)
[2018-03-10] MEDS ORDERED: HYDR-3245 PO (03:54)
[2018-03-10] MEDS ORDERED: GLUCAGON 1 MG IM PRN (06:00)
[2018-03-10] MEDS ORDERED: ACETAMINOPHEN 325 MG TABLET PO PRN (06:00)
[2018-03-10] MEDS ORDERED: DEXTROSE 50%, 50ML SYRINGE IVPush PRN (06:00)
[2018-03-10] MEDS ORDERED: TEMAZEPAM 15 MG CAPSULE PO PRN (06:00)
[2018-03-10] MEDS ORDERED: OXYcodone IR 5MG TABLET PO PRN (06:00)
[2018-03-10] MEDS ORDERED: DEXTROSE 4 GM TAB.CHEW PO PRN (06:00)
[2018-03-10] MEDS ORDERED: ONDANSETRON 2MG/ML, 2ML IVPush PRN (06:00)
[2018-03-10] MEDS ORDERED: GUAIFENESIN/DM 200-20MG, 10ML UDC PO PRN (06:00)
[2018-03-10] MEDS ORDERED: ONDANSETRON ODT 4 MG PO PRN (06:00)
[2018-03-10] MEDS ORDERED: morphine SULFATE 10 MG/ML, 1ML IVPush PRN (06:00)
[2018-03-10] MEDS ORDERED: LABETALOL 5MG/ML, 20ML IVPush PRN (06:00)
[2018-03-10] MEDS ORDERED: NITROGLYCERIN 0.4 MG BOTTLE (25 TABS) SL PRN (06:00)
[2018-03-10] MEDS: methylPREDNISolone SOD SUCC 40 MG/ML IV SCH ×2 (06:22→17:16)
[2018-03-10] MEDS: METOPROLOL TARTRATE 25 MG TABLET PO SCH ×3 (06:22→20:50)
[2018-03-10] MEDS: SODIUM CHLORIDE 0.9% 1,000 ML IV SCH ×2 (06:23→23:45)
[2018-03-10] MEDS: VANCOMYCIN 50 MG/ML ORAL SUSP PO SCH ×4 (06:41→23:52)
[2018-03-10 06:48] VITALS: BP 138/72
[2018-03-10] MEDS: INSULIN LISPRO 100 UNITS/ML, PEN SQ-INSULIN SCH ×4 (07:00→20:55)
[2018-03-10] MEDS ORDERED: ALBUTEROL/IPRATROPIUM 2.5MG/0.5MG, 3 ML ONE (07:02)
[2018-03-10 07:19] LABS: MICROSCOPIC AUTO
[2018-03-10 07:21] LABS: CULTURE INDICATED? YES
[2018-03-10] MEDS ORDERED: ALBUTEROL/IPRATROPIUM 2.5MG/0.5MG, 3 ML NPPB PRN (07:30)
[2018-03-10 08:39] VITALS: BP 118/63
[2018-03-10] MEDS: TICAGRELOR 90 MG TABLET PO SCH ×2 (10:30→20:50)
[2018-03-10] MEDS: FENOFIBRATE 145 MG TABLET PO SCH (10:30)
[2018-03-10] MEDS: ASPIRIN 81 MG TABLET EC PO SCH (10:31)
[2018-03-10] MEDS: CEFTRIAXONE PMX 1GM/50ML 50 ML IV SCH (10:31)
[2018-03-10] MEDS: SODIUM CHLORIDE FLUSH 10ML SYR IVF SCH ×2 (10:35→20:50)
[2018-03-10 12:55] VITALS: BP 120/68
[2018-03-10 13:56] LABS: TROPONIN I < 0.015 ng/mL (0.000-0.045)
[2018-03-10] MEDS: ALBUTEROL/IPRATROPIUM 2.5MG/0.5MG, 3 ML NPPB SCH ×2 (15:00→18:20)
[2018-03-10] MEDS ORDERED: INSULIN REGULAR 100 UNITS/ML, 3ML VIAL IVPush ONE (16:00)
[2018-03-10] MEDS ORDERED: DEXTROSE 50%, 50ML SYRINGE IVPush ONE (16:00)
[2018-03-10 18:34] LABS: ANION GAP 10 mmol/L (5-15); CALCIUM 9.2 mg/dL (8.5-10.1); CHLORIDE 107 mmol/L (98-107); CREATININE 1.98 mg/dL (0.7-1.3)
[2018-03-10] MEDS: TEMPLATE NON-FORMULARY MED. (Rosuvastatin Calcium** (Crestor**) 10 MG) HOMEMEDPO SCH (20:49)
[2018-03-10] MEDS: INSULIN GLARGINE 100 UNITS/ML, PEN SQ-INSULIN SCH (20:54)
[2018-03-10 21:20] VITALS: BP 164/72
[2018-03-10] MEDS ORDERED: INSULIN LISPRO 100 UNITS/ML, PEN SQ-INSULIN ONE (23:00)
[2018-03-11 01:24] VITALS: BP 104/66
[2018-03-11] MEDS: VANCOMYCIN 50 MG/ML ORAL SUSP PO SCH ×4 (05:45→23:32)
[2018-03-11] MEDS: methylPREDNISolone SOD SUCC 40 MG/ML IV SCH ×2 (05:45→17:20)
[2018-03-11] MEDS: METOPROLOL TARTRATE 25 MG TABLET PO SCH ×3 (05:45→23:23)
[2018-03-11] MEDS: INSULIN LISPRO 100 UNITS/ML, PEN SQ-INSULIN SCH ×5 (07:00→23:22)
[2018-03-11] MEDS: ALBUTEROL/IPRATROPIUM 2.5MG/0.5MG, 3 ML NPPB SCH ×4 (07:00→19:30)
[2018-03-11 07:53] VITALS: BP 136/79
[2018-03-11 08:10] LABS: ALANINE AMINOTRANSFERASE 30 U/L (12-78); ALBUMIN 2.6 g/dL (3.4-5.0); ANION GAP 8 mmol/L (5-15); CALCIUM 9.6 mg/dL (8.5-10.1); CHLORIDE 108 mmol/L (98-107)
[2018-03-11 08:12] LABS: ALKALINE PHOSPHATASE 80 U/L (45-117); BILIRUBIN,TOTAL 0.3 mg/dL (0.2-1.0); CREATININE 1.67 mg/dL (0.7-1.3); TOTAL PROTEIN 7.6 g/dL (6.4-8.2)
[2018-03-11 08:19] LABS: MEAN CORPUSCULAR HEMOGLOBIN 28.5 pg (27.5-34.5); MEAN CORPUSCULAR HGB CONC 33.1 g/dL (33.2-36.2); MEAN CORPUSCULAR VOLUME 86.2 fL (81-97); MEAN PLATELET VOLUME 9.1 fL (7.4-10.4); PLATELET COUNT 293 x10^3/uL (130-400); RED CELL DISTRIBUTION WIDTH 16.9 % (9.4-14.8)
[2018-03-11 08:26] LABS: MD YES
[2018-03-11 08:27] LABS: ANISOCYTOSIS 1+; BAND#(MANUAL) 0.22 x10^3/uL; BANDS%(MANUAL) 1 % (0-7); LYMPH#(MANUAL) 0.44 x10^3/uL (1-3.4); LYMPHS% (MANUAL) 2 % (22-44); MONOS#(MANUAL) 0.44 x10^3/uL (0.3-2.7); MONOS% (MANUAL) 2 % (2-9); POLYCHROMASIA 1+; SEGS% (MANUAL) 95 % (42-75)
[2018-03-11 08:28] LABS: <PLATELET ESTIMATE> ADEQUATE; LARGE PLATELETS 1+
[2018-03-11] MEDS: SODIUM CHLORIDE FLUSH 10ML SYR IVF SCH ×2 (09:35→21:00)
[2018-03-11] MEDS: SODIUM CHLORIDE 0.9% 1,000 ML IV SCH ×2 (09:35→23:32)
[2018-03-11] MEDS: TICAGRELOR 90 MG TABLET PO SCH ×2 (09:36→23:32)
[2018-03-11] MEDS: FENOFIBRATE 145 MG TABLET PO SCH (09:36)
[2018-03-11] MEDS: ASPIRIN 81 MG TABLET EC PO SCH (09:36)
[2018-03-11] MEDS: CEFTRIAXONE PMX 1GM/50ML 50 ML IV SCH (09:57)
[2018-03-11 13:20] VITALS: BP 136/72
[2018-03-11 19:53] VITALS: BP 138/82
[2018-03-11] MEDS: TEMPLATE NON-FORMULARY MED. (Rosuvastatin Calcium** (Crestor**) 10 MG) HOMEMEDPO SCH (22:43)
[2018-03-11 22:49] VITALS: BP 161/80
[2018-03-11] MEDS: INSULIN GLARGINE 100 UNITS/ML, PEN SQ-INSULIN SCH (23:32)
[2018-03-12 05:16] VITALS: BP 169/69
[2018-03-12] MEDS: METOPROLOL TARTRATE 25 MG TABLET PO SCH ×3 (05:20→21:01)
[2018-03-12] MEDS: VANCOMYCIN 50 MG/ML ORAL SUSP PO SCH ×4 (05:20→23:43)
[2018-03-12] MEDS: methylPREDNISolone SOD SUCC 40 MG/ML IV SCH ×2 (05:20→17:25)
[2018-03-12 05:23] LABS: MEAN CORPUSCULAR HEMOGLOBIN 28.5 pg (27.5-34.5); MEAN CORPUSCULAR VOLUME 86.4 fL (81-97); PLATELET COUNT 263 x10^3/uL (130-400); RED BLOOD COUNT 4.96 x10^6/uL (4.38-5.82); RED CELL DISTRIBUTION WIDTH 16.4 % (9.4-14.8)
[2018-03-12 05:39] LABS: MD YES
[2018-03-12 05:40] LABS: ANION GAP 7 mmol/L (5-15); ANISOCYTOSIS 1+; CALCIUM 9.1 mg/dL (8.5-10.1); CHLORIDE 108 mmol/L (98-107); CREATININE 1.44 mg/dL (0.7-1.3); LYMPH#(MANUAL) 0.62 x10^3/uL (1-3.4); LYMPHS% (MANUAL) 3 % (22-44); MONOS#(MANUAL) 0.21 x10^3/uL (0.3-2.7); MONOS% (MANUAL) 1 % (2-9); MYELOCYTES# (MANUAL) 0.62 x10^3/uL (0-0); MYELOCYTES% (MANUAL) 3 % (0-0); SEG#(MANUAL) 19.34 x10^3/uL (1.8-6.8); SEGS% (MANUAL) 93 % (42-75)
[2018-03-12 05:41] LABS: <PLATELET ESTIMATE> ADEQUATE; <PLT MORPHOLOGY> NORMAL PLT MORPH
[2018-03-12] MEDS: ALBUTEROL/IPRATROPIUM 2.5MG/0.5MG, 3 ML NPPB SCH ×4 (07:10→19:57)
[2018-03-12 07:43] VITALS: BP 146/76
[2018-03-12] MEDS: ASPIRIN 81 MG TABLET EC PO SCH (08:25)
[2018-03-12] MEDS: FENOFIBRATE 145 MG TABLET PO SCH (08:25)
[2018-03-12] MEDS: SODIUM CHLORIDE FLUSH 10ML SYR IVF SCH ×2 (08:25→21:04)
[2018-03-12] MEDS: TICAGRELOR 90 MG TABLET PO SCH ×2 (08:25→21:00)
[2018-03-12] MEDS: INSULIN LISPRO 100 UNITS/ML, PEN SQ-INSULIN SCH ×4 (08:36→21:14)
[2018-03-12] MEDS: CEFTRIAXONE PMX 1GM/50ML 50 ML IV SCH (10:00)
[2018-03-12] MEDS ORDERED: SODIUM CHLORIDE 0.9%, 500ML IVBOLUS ONE (13:30)
[2018-03-12] MEDS ORDERED: FUROSEMIDE 20 MG/2 ML IV ONE (13:30)
[2018-03-12 14:25] VITALS: BP 128/73
[2018-03-12] MEDS: SODIUM CHLORIDE 0.9% 1,000 ML IV SCH ×2 (16:10→23:30)
[2018-03-12 16:47] LABS: RAPID INFLUENZA A Negative (Negative)
[2018-03-12 16:51] LABS: RAPID INFLUENZA B POSITIVE (Negative)
[2018-03-12] MEDS: HEPARIN 5,000 UNITS/ML, 1ML SQ SCH ×2 (17:26→23:44)
[2018-03-12 21:00] VITALS: BP 156/87
[2018-03-12] MEDS: OSELTAMIVIR 75 MG CAPSULE PO SCH (21:00)
[2018-03-12] MEDS: TEMPLATE NON-FORMULARY MED. (Rosuvastatin Calcium** (Crestor**) 10 MG) HOMEMEDPO SCH (21:00)
[2018-03-12] MEDS: INSULIN GLARGINE 100 UNITS/ML, PEN SQ-INSULIN SCH (21:13)
[2018-03-12] MEDS ORDERED: ALBUTEROL SULFATE 2.5 MG/3 ML ONE (23:56)
[2018-03-13 01:58] VITALS: BP 154/85
[2018-03-13 05:08] LABS: BASOPHILS % (AUTO) 0 % (0-1); EOSINOPHILS % (AUTO) 0 % (1-7); LYMPHOCYTES # (AUTO) 1.05 x10^3/uL (1-3.4); LYMPHOCYTES % (AUTO) 7 % (22-44); MD NO; MEAN CORPUSCULAR HEMOGLOBIN 28.7 pg (27.5-34.5); MEAN CORPUSCULAR HGB CONC 33.3 g/dL (33.2-36.2); MEAN PLATELET VOLUME 8.9 fL (7.4-10.4); MONOCYTES # (AUTO) 0.82 x10^3/uL (0.2-0.8); MONOCYTES % (AUTO) 5 % (2-9); NEUTROPHILS # (AUTO) 14.04 x10^3/uL (1.8-6.8); NEUTROPHILS % (AUTO) 88 % (42-75); PLATELET COUNT 296 x10^3/uL (130-400); RED BLOOD COUNT 5.01 x10^6/uL (4.38-5.82); RED CELL DISTRIBUTION WIDTH 16.6 % (9.4-14.8)
[2018-03-13 05:15] LABS: ANION GAP 7 mmol/L (5-15); CALCIUM 9.5 mg/dL (8.5-10.1); CHLORIDE 106 mmol/L (98-107)
[2018-03-13 05:16] LABS: CREATININE 1.35 mg/dL (0.7-1.3)
[2018-03-13] MEDS: METOPROLOL TARTRATE 25 MG TABLET PO SCH ×3 (05:52→21:31)
[2018-03-13] MEDS: VANCOMYCIN 50 MG/ML ORAL SUSP PO SCH (05:53)
[2018-03-13] MEDS: methylPREDNISolone SOD SUCC 40 MG/ML IV SCH (05:53)
[2018-03-13] MEDS: ALBUTEROL/IPRATROPIUM 2.5MG/0.5MG, 3 ML NPPB SCH ×5 (06:53→21:44)
[2018-03-13 07:53] VITALS: BP 150/87
[2018-03-13] MEDS ORDERED: SODIUM CHLORIDE 0.9% 1,000 ML IV SCH (09:00)
[2018-03-13] MEDS: INSULIN LISPRO 100 UNITS/ML, PEN SQ-INSULIN SCH ×4 (09:25→21:33)
[2018-03-13] MEDS: TICAGRELOR 90 MG TABLET PO SCH ×2 (09:26→21:31)
[2018-03-13] MEDS: FENOFIBRATE 145 MG TABLET PO SCH (09:26)
[2018-03-13] MEDS: ASPIRIN 81 MG TABLET EC PO SCH (09:27)
[2018-03-13] MEDS: OSELTAMIVIR 75 MG CAPSULE PO SCH ×2 (09:27→21:31)
[2018-03-13] MEDS: HEPARIN 5,000 UNITS/ML, 1ML SQ SCH ×2 (09:28→17:37)
[2018-03-13] MEDS: SODIUM CHLORIDE FLUSH 10ML SYR IVF SCH ×2 (09:29→21:00)
[2018-03-13] MEDS: CEFTRIAXONE PMX 2GM/50ML 50 ML IV SCH (11:08)
[2018-03-13 12:47] VITALS: BP 158/70
[2018-03-13 18:50] VITALS: BP 164/75
[2018-03-13] MEDS: TEMPLATE NON-FORMULARY MED. (Rosuvastatin Calcium** (Crestor**) 10 MG) HOMEMEDPO SCH (21:00)
[2018-03-13] MEDS: INSULIN GLARGINE 100 UNITS/ML, PEN SQ-INSULIN SCH (21:32)
[2018-03-14] MEDS: HEPARIN 5,000 UNITS/ML, 1ML SQ SCH ×3 (00:12→16:28)
[2018-03-14 02:40] VITALS: BP 133/80
[2018-03-14 05:12] LABS: MEAN CORPUSCULAR HEMOGLOBIN 28.3 pg (27.5-34.5); MEAN CORPUSCULAR VOLUME 85.9 fL (81-97); MEAN PLATELET VOLUME 8.7 fL (7.4-10.4); PLATELET COUNT 318 x10^3/uL (130-400); RED BLOOD COUNT 5.23 x10^6/uL (4.38-5.82); RED CELL DISTRIBUTION WIDTH 16.6 % (9.4-14.8)
[2018-03-14 05:15] LABS: CHLORIDE 108 mmol/L (98-107)
[2018-03-14 05:21] LABS: ANION GAP 9 mmol/L (5-15); CALCIUM 9.5 mg/dL (8.5-10.1); CREATININE 1.18 mg/dL (0.7-1.3)
[2018-03-14 05:46] LABS: MD YES
[2018-03-14 05:47] LABS: BANDS%(MANUAL) 2 % (0-7); LYMPH#(MANUAL) 2.87 x10^3/uL (1-3.4); LYMPHS% (MANUAL) 19 % (22-44); MONOS% (MANUAL) 4 % (2-9); MYELOCYTES% (MANUAL) 2 % (0-0); SEG#(MANUAL) 11.02 x10^3/uL (1.8-6.8); SEGS% (MANUAL) 73 % (42-75)
[2018-03-14 05:48] LABS: <PLATELET ESTIMATE> ADEQUATE; <PLT MORPHOLOGY> NORMAL PLT MORPH; ANISOCYTOSIS 1+
[2018-03-14] MEDS: METOPROLOL TARTRATE 25 MG TABLET PO SCH ×3 (06:07→20:30)
[2018-03-14 07:07] VITALS: BP 184/81
[2018-03-14] MEDS: ALBUTEROL/IPRATROPIUM 2.5MG/0.5MG, 3 ML NPPB SCH ×4 (07:59→19:49)
[2018-03-14] MEDS: INSULIN LISPRO 100 UNITS/ML, PEN SQ-INSULIN SCH ×4 (08:13→20:29)
[2018-03-14] MEDS: ASPIRIN 81 MG TABLET EC PO SCH (08:14)
[2018-03-14] MEDS: FENOFIBRATE 145 MG TABLET PO SCH (08:14)
[2018-03-14] MEDS: TICAGRELOR 90 MG TABLET PO SCH ×2 (08:14→20:30)
[2018-03-14] MEDS: OSELTAMIVIR 75 MG CAPSULE PO SCH ×2 (08:14→20:30)
[2018-03-14] MEDS: CEFTRIAXONE PMX 2GM/50ML 50 ML IV SCH (10:03)
[2018-03-14] MEDS: SODIUM CHLORIDE FLUSH 10ML SYR IVF SCH ×2 (10:03→20:30)
[2018-03-14 13:02] VITALS: BP 137/70
[2018-03-14 19:23] VITALS: BP 132/63
[2018-03-14] MEDS: TEMPLATE NON-FORMULARY MED. (Rosuvastatin Calcium** (Crestor**) 10 MG) HOMEMEDPO SCH (20:22)
[2018-03-14] MEDS: INSULIN GLARGINE 100 UNITS/ML, PEN SQ-INSULIN SCH (20:28)
[2018-03-15 00:33] VITALS: BP 156/80
[2018-03-15] MEDS: HEPARIN 5,000 UNITS/ML, 1ML SQ SCH ×3 (00:43→16:38)
[2018-03-15 04:56] LABS: MEAN CORPUSCULAR HEMOGLOBIN 28.1 pg (27.5-34.5); MEAN CORPUSCULAR HGB CONC 32.9 g/dL (33.2-36.2); MEAN CORPUSCULAR VOLUME 85.7 fL (81-97); MEAN PLATELET VOLUME 8.6 fL (7.4-10.4); PLATELET COUNT 298 x10^3/uL (130-400); RED BLOOD COUNT 5.66 x10^6/uL (4.38-5.82); RED CELL DISTRIBUTION WIDTH 16.6 % (9.4-14.8)
[2018-03-15 04:57] LABS: ANION GAP 8 mmol/L (5-15); CALCIUM 9.2 mg/dL (8.5-10.1); CHLORIDE 106 mmol/L (98-107)
[2018-03-15 04:58] LABS: CREATININE 1.18 mg/dL (0.7-1.3)
[2018-03-15 05:34] LABS: MD YES
[2018-03-15 05:36] LABS: BAND#(MANUAL) 0.56 x10^3/uL; BANDS%(MANUAL) 3 % (0-7); EOS#(MANUAL) 0.37 x10^3/uL (0.0-0.4); EOS% (MANUAL) 2 % (1-7); LYMPH#(MANUAL) 3.52 x10^3/uL (1-3.4); LYMPHS% (MANUAL) 19 % (22-44); MONOS#(MANUAL) 1.11 x10^3/uL (0.3-2.7); MONOS% (MANUAL) 6 % (2-9); MYELOCYTES# (MANUAL) 0.37 x10^3/uL (0-0); MYELOCYTES% (MANUAL) 2 % (0-0); SEG#(MANUAL) 12.58 x10^3/uL (1.8-6.8); SEGS% (MANUAL) 68 % (42-75)
[2018-03-15 05:37] LABS: ANISOCYTOSIS 1+
[2018-03-15 05:38] LABS: <PLATELET ESTIMATE> ADEQUATE; <PLT MORPHOLOGY> NORMAL PLT MORPH
[2018-03-15] MEDS: METOPROLOL TARTRATE 25 MG TABLET PO SCH ×3 (05:38→19:48)
[2018-03-15 06:35] VITALS: BP 151/72
[2018-03-15] MEDS: ALBUTEROL/IPRATROPIUM 2.5MG/0.5MG, 3 ML NPPB SCH ×4 (07:59→21:11)
[2018-03-15] MEDS: SODIUM CHLORIDE FLUSH 10ML SYR IVF SCH ×2 (08:28→19:47)
[2018-03-15] MEDS: FENOFIBRATE 145 MG TABLET PO SCH (08:28)
[2018-03-15] MEDS: TICAGRELOR 90 MG TABLET PO SCH ×2 (08:28→19:47)
[2018-03-15] MEDS: ASPIRIN 81 MG TABLET EC PO SCH (08:28)
[2018-03-15] MEDS: OSELTAMIVIR 75 MG CAPSULE PO SCH ×2 (08:28→19:48)
[2018-03-15] MEDS: INSULIN LISPRO 100 UNITS/ML, PEN SQ-INSULIN SCH ×4 (08:28→19:56)
[2018-03-15] MEDS: CEFTRIAXONE PMX 2GM/50ML 50 ML IV SCH (10:40)
[2018-03-15 12:18] VITALS: BP_SYST 127; BP_SYST 137; BP_SYST 138; BP_DIAS 69; BP_DIAS 70; BP_DIAS 72
[2018-03-15] MEDS: INSULIN GLARGINE 100 UNITS/ML, PEN SQ-INSULIN SCH (19:55)
[2018-03-15 20:00] VITALS: BP 138/77
[2018-03-15] MEDS: TEMPLATE NON-FORMULARY MED. (Rosuvastatin Calcium** (Crestor**) 10 MG) HOMEMEDPO SCH (20:01)
[2018-03-16] MEDS: HEPARIN 5,000 UNITS/ML, 1ML SQ SCH ×3 (00:52→17:20)
[2018-03-16 01:58] VITALS: BP 144/75
[2018-03-16 05:17] LABS: ANION GAP 8 mmol/L (5-15); CALCIUM 9.1 mg/dL (8.5-10.1); CHLORIDE 104 mmol/L (98-107); CREATININE 1.24 mg/dL (0.7-1.3)
[2018-03-16 05:18] LABS: MEAN CORPUSCULAR HEMOGLOBIN 28.2 pg (27.5-34.5); MEAN CORPUSCULAR HGB CONC 32.8 g/dL (33.2-36.2); MEAN CORPUSCULAR VOLUME 85.9 fL (81-97); MEAN PLATELET VOLUME 8.4 fL (7.4-10.4); PLATELET COUNT 304 x10^3/uL (130-400); RED BLOOD COUNT 5.59 x10^6/uL (4.38-5.82); RED CELL DISTRIBUTION WIDTH 16.4 % (9.4-14.8)
[2018-03-16] MEDS: METOPROLOL TARTRATE 25 MG TABLET PO SCH ×3 (05:21→21:29)
[2018-03-16 05:43] LABS: MD YES
[2018-03-16 05:45] LABS: BAND#(MANUAL) 0.22 x10^3/uL; BANDS%(MANUAL) 1 % (0-7); EOS#(MANUAL) 1.09 x10^3/uL (0.0-0.4); EOS% (MANUAL) 5 % (1-7); LYMPH#(MANUAL) 4.58 x10^3/uL (1-3.4); LYMPHS% (MANUAL) 21 % (22-44); METAMYELOCYTES# (MANUAL) 0.65 x10^3/uL (0-0); METAMYELOCYTES% (MANUAL) 3 % (0-1); MONOS#(MANUAL) 1.09 x10^3/uL (0.3-2.7); MONOS% (MANUAL) 5 % (2-9); MYELOCYTES# (MANUAL) 0.44 x10^3/uL (0-0); MYELOCYTES% (MANUAL) 2 % (0-0); NRBC % (MANUAL) 1 % (0-1); SEG#(MANUAL) 13.73 x10^3/uL (1.8-6.8); SEGS% (MANUAL) 63 % (42-75)
[2018-03-16 05:46] LABS: <PLATELET ESTIMATE> ADEQUATE; <PLT MORPHOLOGY> NORMAL PLT MORPH; ANISOCYTOSIS 1+
[2018-03-16] MEDS: ALBUTEROL/IPRATROPIUM 2.5MG/0.5MG, 3 ML NPPB SCH ×4 (07:00→20:00)
[2018-03-16] MEDS: SODIUM CHLORIDE FLUSH 10ML SYR IVF SCH ×2 (08:13→21:31)
[2018-03-16] MEDS: ASPIRIN 81 MG TABLET EC PO SCH (08:13)
[2018-03-16] MEDS: INSULIN LISPRO 100 UNITS/ML, PEN SQ-INSULIN SCH ×4 (08:13→21:29)
[2018-03-16] MEDS: TICAGRELOR 90 MG TABLET PO SCH ×2 (08:13→21:28)
[2018-03-16] MEDS: OSELTAMIVIR 75 MG CAPSULE PO SCH ×2 (08:13→21:29)
[2018-03-16] MEDS: FENOFIBRATE 145 MG TABLET PO SCH (08:13)
[2018-03-16 09:25] VITALS: BP 126/62
[2018-03-16] MEDS: CEFTRIAXONE PMX 2GM/50ML 50 ML IV SCH (11:34)
[2018-03-16 13:14] VITALS: BP 131/72
[2018-03-16] MEDS: DOXYCYCLINE 100MG TABLET PO SCH ×2 (17:19→21:29)
[2018-03-16] MEDS ORDERED: OXYcodone IR 5MG TABLET PO PRN (18:00)
[2018-03-16 18:56] VITALS: BP 127/69
[2018-03-16] MEDS: TEMPLATE NON-FORMULARY MED. (Rosuvastatin Calcium** (Crestor**) 10 MG) HOMEMEDPO SCH (21:00)
[2018-03-16] MEDS: INSULIN GLARGINE 100 UNITS/ML, PEN SQ-INSULIN SCH (21:30)
[2018-03-17 01:16] VITALS: BP 130/71
[2018-03-17] MEDS: HEPARIN 5,000 UNITS/ML, 1ML SQ SCH ×3 (01:37→16:52)
[2018-03-17 05:05] LABS: MEAN CORPUSCULAR HEMOGLOBIN 27.9 pg (27.5-34.5); MEAN CORPUSCULAR HGB CONC 32.8 g/dL (33.2-36.2); MEAN CORPUSCULAR VOLUME 85.1 fL (81-97); MEAN PLATELET VOLUME 8.8 fL (7.4-10.4); PLATELET COUNT 279 x10^3/uL (130-400); RED BLOOD COUNT 5.75 x10^6/uL (4.38-5.82); RED CELL DISTRIBUTION WIDTH 16.4 % (9.4-14.8)
[2018-03-17 05:13] LABS: ALBUMIN 2.7 g/dL (3.4-5.0); ANION GAP 9 mmol/L (5-15); CALCIUM 9.4 mg/dL (8.5-10.1); CHLORIDE 104 mmol/L (98-107)
[2018-03-17 05:15] LABS: CREATININE 1.27 mg/dL (0.7-1.3)
[2018-03-17 05:46] LABS: MD YES
[2018-03-17] MEDS: METOPROLOL TARTRATE 25 MG TABLET PO SCH ×2 (06:04→14:27)
[2018-03-17 06:09] LABS: <PLATELET ESTIMATE> ADEQUATE; <PLT MORPHOLOGY> NORMAL PLT MORPH; ANISOCYTOSIS 1+; BAND#(MANUAL) 0.79 x10^3/uL; BANDS%(MANUAL) 4 % (0-7); EOS% (MANUAL) 2 % (1-7); LYMPH#(MANUAL) 3.96 x10^3/uL (1-3.4); LYMPHS% (MANUAL) 20 % (22-44); METAMYELOCYTES# (MANUAL) 0.79 x10^3/uL (0-0); METAMYELOCYTES% (MANUAL) 4 % (0-1); SEG#(MANUAL) 13.86 x10^3/uL (1.8-6.8); SEGS% (MANUAL) 70 % (42-75)
[2018-03-17 07:07] VITALS: BP 153/84
[2018-03-17] MEDS: ALBUTEROL/IPRATROPIUM 2.5MG/0.5MG, 3 ML NPPB SCH ×4 (07:56→18:51)
[2018-03-17] MEDS: FENOFIBRATE 145 MG TABLET PO SCH (08:44)
[2018-03-17] MEDS: INSULIN LISPRO 100 UNITS/ML, PEN SQ-INSULIN SCH ×4 (08:44→20:49)
[2018-03-17] MEDS: OSELTAMIVIR 75 MG CAPSULE PO SCH ×2 (08:44→20:51)
[2018-03-17] MEDS: ASPIRIN 81 MG TABLET EC PO SCH (08:44)
[2018-03-17] MEDS: TICAGRELOR 90 MG TABLET PO SCH ×2 (08:44→20:51)
[2018-03-17] MEDS: DOXYCYCLINE 100MG TABLET PO SCH ×2 (08:45→20:51)
[2018-03-17] MEDS: SODIUM CHLORIDE FLUSH 10ML SYR IVF SCH ×2 (08:45→20:50)
[2018-03-17] MEDS ORDERED: INSULIN GLARGINE 100 UNITS/ML, PEN SQ-INSULIN SCH (09:00)
[2018-03-17] MEDS ORDERED: INSULIN GLARGINE 100 UNITS/ML, PEN SQ-INSULIN ONE (09:30)
[2018-03-17] MEDS: CEFTRIAXONE PMX 2GM/50ML 50 ML IV SCH (10:14)
[2018-03-17 12:26] VITALS: BP 119/65
[2018-03-17] MEDS: TEMPLATE NON-FORMULARY MED. (Rosuvastatin Calcium** (Crestor**) 10 MG) HOMEMEDPO SCH (20:07)
[2018-03-17 20:43] VITALS: BP 120/73
[2018-03-17] MEDS: INSULIN GLARGINE 100 UNITS/ML, PEN SQ-INSULIN SCH (20:48)
[2018-03-17] MEDS: SPIRONOLACTONE 25 MG TABLET PO SCH (20:50)
[2018-03-17] MEDS ORDERED: METOPROLOL TARTRATE 25 MG TABLET PO SCH (21:00)
[2018-03-18] MEDS: HEPARIN 5,000 UNITS/ML, 1ML SQ SCH ×3 (00:27→17:21)
[2018-03-18 00:29] VITALS: BP 120/64
[2018-03-18] MEDS ORDERED: METOPROLOL SUCCINATE 25 MG TAB.ER.24H PO SCH (06:00)
[2018-03-18 06:52] VITALS: BP 135/75
[2018-03-18] MEDS: ALBUTEROL/IPRATROPIUM 2.5MG/0.5MG, 3 ML NPPB SCH ×4 (07:00→20:00)
[2018-03-18] MEDS: FENOFIBRATE 145 MG TABLET PO SCH (08:43)
[2018-03-18] MEDS: ASPIRIN 81 MG TABLET EC PO SCH (08:44)
[2018-03-18] MEDS: ALLOPURINOL 300 MG TABLET PO SCH (08:44)
[2018-03-18] MEDS: TICAGRELOR 90 MG TABLET PO SCH ×2 (08:44→21:17)
[2018-03-18] MEDS: LISINOPRIL 10 MG TABLET PO SCH (08:44)
[2018-03-18] MEDS: OSELTAMIVIR 75 MG CAPSULE PO SCH (08:45)
[2018-03-18] MEDS: SODIUM CHLORIDE FLUSH 10ML SYR IVF SCH ×2 (08:45→21:18)
[2018-03-18] MEDS: DOXYCYCLINE 100MG TABLET PO SCH ×2 (08:45→21:17)
[2018-03-18] MEDS: SPIRONOLACTONE 25 MG TABLET PO SCH ×2 (08:45→21:17)
[2018-03-18] MEDS: INSULIN LISPRO 100 UNITS/ML, PEN SQ-INSULIN SCH ×4 (08:50→21:16)
[2018-03-18] MEDS: INSULIN GLARGINE 100 UNITS/ML, PEN SQ-INSULIN SCH ×2 (08:51→21:17)
[2018-03-18] MEDS ORDERED: FUROSEMIDE 20 MG TABLET PO SCH (09:00)
[2018-03-18] MEDS ORDERED: INSU100I13 SQ-INSULIN (09:12)
[2018-03-18] MEDS ORDERED: CEFD300C37 PO (09:12)
[2018-03-18] MEDS ORDERED: LISI-167 PO (09:12)
[2018-03-18] MEDS ORDERED: METO25TA91 PO (09:15)
[2018-03-18] MEDS ORDERED: METO50TA4 PO (09:15)
[2018-03-18 09:43] LABS: MEAN CORPUSCULAR HGB CONC 32.5 g/dL (33.2-36.2); MEAN CORPUSCULAR VOLUME 86.2 fL (81-97); MEAN PLATELET VOLUME 8.6 fL (7.4-10.4); PLATELET COUNT 294 x10^3/uL (130-400); RED BLOOD COUNT 5.97 x10^6/uL (4.38-5.82); RED CELL DISTRIBUTION WIDTH 17.7 % (9.4-14.8)
[2018-03-18 09:52] LABS: ALBUMIN 3.1 g/dL (3.4-5.0); ANION GAP 9 mmol/L (5-15); CALCIUM 9.6 mg/dL (8.5-10.1); CHLORIDE 104 mmol/L (98-107); CREATININE 1.27 mg/dL (0.7-1.3)
[2018-03-18] MEDS: CEFTRIAXONE PMX 2GM/50ML 50 ML IV SCH (10:33)
[2018-03-18] MEDS: METOPROLOL SUCCINATE 50 MG TAB.ER.24H PO SCH (10:44)
[2018-03-18 10:47] LABS: BASOPHILS # (AUTO) 0.05 x10^3/uL (0-0.1); BASOPHILS % (AUTO) 0 % (0-1); EOSINOPHILS # (AUTO) 0.91 x10^3/uL (0-0.4); EOSINOPHILS % (AUTO) 5 % (1-7); LYMPHOCYTES # (AUTO) 2.84 x10^3/uL (1-3.4); LYMPHOCYTES % (AUTO) 15 % (22-44); MD SCAN; MONOCYTES # (AUTO) 0.77 x10^3/uL (0.2-0.8); MONOCYTES % (AUTO) 4 % (2-9); NEUTROPHILS % (AUTO) 76 % (42-75)
[2018-03-18 12:35] VITALS: BP 101/62
[2018-03-18] MEDS: TEMPLATE NON-FORMULARY MED. (Rosuvastatin Calcium** (Crestor**) 10 MG) HOMEMEDPO SCH (19:20)
[2018-03-18 21:06] VITALS: BP 102/57
[2018-03-19] MEDS: HEPARIN 5,000 UNITS/ML, 1ML SQ SCH ×3 (00:28→18:10)
[2018-03-19 00:29] VITALS: BP 102/58
[2018-03-19 05:14] LABS: ALBUMIN 2.8 g/dL (3.4-5.0); ANION GAP 12 mmol/L (5-15); CALCIUM 9.4 mg/dL (8.5-10.1); CHLORIDE 102 mmol/L (98-107)
[2018-03-19] MEDS ORDERED: METOPROLOL SUCCINATE 50 MG TAB.ER.24H PO SCH (06:00)
[2018-03-19 06:05] LABS: BASOPHILS # (AUTO) 0.07 x10^3/uL (0-0.1); BASOPHILS % (AUTO) 0 % (0-1); EOSINOPHILS # (AUTO) 0.83 x10^3/uL (0-0.4); EOSINOPHILS % (AUTO) 4 % (1-7); LYMPHOCYTES # (AUTO) 3.08 x10^3/uL (1-3.4); LYMPHOCYTES % (AUTO) 15 % (22-44); MD SCAN; MEAN CORPUSCULAR HEMOGLOBIN 27.8 pg (27.5-34.5); MEAN CORPUSCULAR VOLUME 84.3 fL (81-97); MEAN PLATELET VOLUME 8.5 fL (7.4-10.4); MONOCYTES # (AUTO) 1.21 x10^3/uL (0.2-0.8); MONOCYTES % (AUTO) 6 % (2-9); NEUTROPHILS # (AUTO) 15.91 x10^3/uL (1.8-6.8); NEUTROPHILS % (AUTO) 75 % (42-75); PLATELET COUNT 223 x10^3/uL (130-400); RED BLOOD COUNT 5.52 x10^6/uL (4.38-5.82); RED CELL DISTRIBUTION WIDTH 16.8 % (9.4-14.8)
[2018-03-19 06:38] VITALS: BP 112/69
[2018-03-19] MEDS: METOPROLOL SUCCINATE 50 MG TAB.ER.24H PO SCH (06:38)
[2018-03-19] MEDS: ALBUTEROL/IPRATROPIUM 2.5MG/0.5MG, 3 ML NPPB SCH ×4 (06:40→19:10)
[2018-03-19 07:44] VITALS: BP 110/72
[2018-03-19] MEDS: INSULIN LISPRO 100 UNITS/ML, PEN SQ-INSULIN SCH ×4 (08:28→20:32)
[2018-03-19] MEDS: INSULIN GLARGINE 100 UNITS/ML, PEN SQ-INSULIN SCH ×2 (08:28→20:32)
[2018-03-19] MEDS: FENOFIBRATE 145 MG TABLET PO SCH (08:29)
[2018-03-19] MEDS: SODIUM CHLORIDE FLUSH 10ML SYR IVF SCH ×2 (08:29→20:30)
[2018-03-19] MEDS: CEFDINIR 300 MG CAPSULE PO SCH ×2 (08:29→20:29)
[2018-03-19] MEDS: TICAGRELOR 90 MG TABLET PO SCH ×2 (08:29→20:29)
[2018-03-19] MEDS: ASPIRIN 81 MG TABLET EC PO SCH (08:30)
[2018-03-19] MEDS: ALLOPURINOL 300 MG TABLET PO SCH (08:30)
[2018-03-19] MEDS: DOXYCYCLINE 100MG TABLET PO SCH ×2 (08:30→20:30)
[2018-03-19] MEDS: LISINOPRIL 10 MG TABLET PO SCH (08:30)
[2018-03-19] MEDS ORDERED: SODIUM CHLORIDE 0.9% 1,000ML IVBOLUS ONE (09:00)
[2018-03-19 13:05] VITALS: BP 118/78
[2018-03-19 15:03] LABS: ANION GAP 11 mmol/L (5-15); CHLORIDE 106 mmol/L (98-107); CREATININE 1.66 mg/dL (0.7-1.3)
[2018-03-19] MEDS: LACTATED RINGERS 1,000 ML IV SCH (16:08)
[2018-03-19 19:09] VITALS: BP 100/52
[2018-03-19] MEDS: TEMPLATE NON-FORMULARY MED. (Rosuvastatin Calcium** (Crestor**) 10 MG) HOMEMEDPO SCH (20:31)
[2018-03-20 00:46] VITALS: BP 120/75
[2018-03-20] MEDS: HEPARIN 5,000 UNITS/ML, 1ML SQ SCH ×3 (01:37→16:32)
[2018-03-20 05:36] LABS: MEAN CORPUSCULAR HGB CONC 32.8 g/dL (33.2-36.2); MEAN CORPUSCULAR VOLUME 85.4 fL (81-97); MEAN PLATELET VOLUME 8.8 fL (7.4-10.4); PLATELET COUNT 224 x10^3/uL (130-400); RED BLOOD COUNT 5.01 x10^6/uL (4.38-5.82); RED CELL DISTRIBUTION WIDTH 16.9 % (9.4-14.8)
[2018-03-20 05:45] LABS: CHLORIDE 107 mmol/L (98-107)
[2018-03-20] MEDS: METOPROLOL SUCCINATE 50 MG TAB.ER.24H PO SCH (05:48)
[2018-03-20] MEDS: LACTATED RINGERS 1,000 ML IV SCH (05:49)
[2018-03-20 05:52] LABS: ALBUMIN 2.6 g/dL (3.4-5.0); ANION GAP 11 mmol/L (5-15); CALCIUM 9.2 mg/dL (8.5-10.1); CREATININE 1.39 mg/dL (0.7-1.3)
[2018-03-20 06:08] LABS: BASOPHILS # (AUTO) 0.05 x10^3/uL (0-0.1); BASOPHILS % (AUTO) 0 % (0-1); EOSINOPHILS # (AUTO) 0.68 x10^3/uL (0-0.4); EOSINOPHILS % (AUTO) 4 % (1-7); LYMPHOCYTES # (AUTO) 1.99 x10^3/uL (1-3.4); LYMPHOCYTES % (AUTO) 12 % (22-44); MD SCAN; MONOCYTES # (AUTO) 1.05 x10^3/uL (0.2-0.8); MONOCYTES % (AUTO) 6 % (2-9); NEUTROPHILS # (AUTO) 12.93 x10^3/uL (1.8-6.8); NEUTROPHILS % (AUTO) 77 % (42-75)
[2018-03-20] MEDS: ALBUTEROL/IPRATROPIUM 2.5MG/0.5MG, 3 ML NPPB SCH ×4 (06:36→20:53)
[2018-03-20 08:02] VITALS: BP 129/69
[2018-03-20] MEDS: FENOFIBRATE 145 MG TABLET PO SCH (08:31)
[2018-03-20] MEDS: ASPIRIN 81 MG TABLET EC PO SCH (08:31)
[2018-03-20] MEDS: CEFDINIR 300 MG CAPSULE PO SCH ×2 (08:31→20:34)
[2018-03-20] MEDS: INSULIN LISPRO 100 UNITS/ML, PEN SQ-INSULIN SCH ×4 (08:31→20:35)
[2018-03-20] MEDS: TICAGRELOR 90 MG TABLET PO SCH ×2 (08:31→20:34)
[2018-03-20] MEDS: INSULIN GLARGINE 100 UNITS/ML, PEN SQ-INSULIN SCH ×2 (08:31→20:35)
[2018-03-20] MEDS: SODIUM CHLORIDE FLUSH 10ML SYR IVF SCH (08:32)
[2018-03-20] MEDS: ALLOPURINOL 300 MG TABLET PO SCH (08:32)
[2018-03-20] MEDS: DOXYCYCLINE 100MG TABLET PO SCH ×2 (08:32→20:34)
[2018-03-20] MEDS: LISINOPRIL 10 MG TABLET PO SCH (08:32)
[2018-03-20 13:07] VITALS: BP 122/78
[2018-03-20 20:15] VITALS: BP 101/65
[2018-03-20] MEDS: TEMPLATE NON-FORMULARY MED. (Rosuvastatin Calcium** (Crestor**) 10 MG) HOMEMEDPO SCH (21:00)
[2018-03-21] MEDS: SODIUM CHLORIDE FLUSH 10ML SYR IVF SCH ×3 (01:23→21:16)
[2018-03-21] MEDS: HEPARIN 5,000 UNITS/ML, 1ML SQ SCH ×3 (01:23→17:32)
[2018-03-21 03:29] VITALS: BP 107/72
[2018-03-21 06:17] VITALS: BP 122/73
[2018-03-21] MEDS: METOPROLOL SUCCINATE 50 MG TAB.ER.24H PO SCH (06:20)
[2018-03-21] MEDS: ALBUTEROL/IPRATROPIUM 2.5MG/0.5MG, 3 ML NPPB SCH ×4 (06:59→18:55)
[2018-03-21] MEDS: INSULIN LISPRO 100 UNITS/ML, PEN SQ-INSULIN SCH ×4 (07:00→21:17)
[2018-03-21] MEDS ORDERED: CEFD300C37 PO (07:54)
[2018-03-21] MEDS: ALLOPURINOL 300 MG TABLET PO SCH (08:55)
[2018-03-21] MEDS: DOXYCYCLINE 100MG TABLET PO SCH ×2 (08:55→21:16)
[2018-03-21] MEDS: LISINOPRIL 10 MG TABLET PO SCH (08:55)
[2018-03-21] MEDS: ASPIRIN 81 MG TABLET EC PO SCH (08:55)
[2018-03-21] MEDS: FENOFIBRATE 145 MG TABLET PO SCH (08:55)
[2018-03-21] MEDS: CEFDINIR 300 MG CAPSULE PO SCH ×2 (08:56→21:16)
[2018-03-21] MEDS: TICAGRELOR 90 MG TABLET PO SCH ×2 (08:56→21:16)
[2018-03-21 09:28] VITALS: BP 126/68
[2018-03-21] MEDS: INSULIN GLARGINE 100 UNITS/ML, PEN SQ-INSULIN SCH ×2 (11:14→21:18)
[2018-03-21 14:39] VITALS: BP 105/62
[2018-03-21] MEDS: TEMPLATE NON-FORMULARY MED. (Rosuvastatin Calcium** (Crestor**) 10 MG) HOMEMEDPO SCH (19:25)
[2018-03-21 19:34] VITALS: BP 108/61
[2018-03-22 00:56] VITALS: BP 116/71
[2018-03-22] MEDS: HEPARIN 5,000 UNITS/ML, 1ML SQ SCH ×2 (01:00→07:55)
[2018-03-22 04:32] VITALS: BP 97/64
[2018-03-22] MEDS: METOPROLOL SUCCINATE 50 MG TAB.ER.24H PO SCH (04:41)
[2018-03-22 05:28] LABS: BASOPHILS # (AUTO) 0.05 x10^3/uL (0-0.1); BASOPHILS % (AUTO) 0 % (0-1); EOSINOPHILS # (AUTO) 0.47 x10^3/uL (0-0.4); EOSINOPHILS % (AUTO) 4 % (1-7); LYMPHOCYTES # (AUTO) 1.69 x10^3/uL (1-3.4); LYMPHOCYTES % (AUTO) 12 % (22-44); MD NO; MEAN CORPUSCULAR HEMOGLOBIN 28.4 pg (27.5-34.5); MEAN CORPUSCULAR HGB CONC 33.5 g/dL (33.2-36.2); MEAN PLATELET VOLUME 8.8 fL (7.4-10.4); MONOCYTES # (AUTO) 1.18 x10^3/uL (0.2-0.8); MONOCYTES % (AUTO) 9 % (2-9); NEUTROPHILS # (AUTO) 10.34 x10^3/uL (1.8-6.8); NEUTROPHILS % (AUTO) 75 % (42-75); PLATELET COUNT 237 x10^3/uL (130-400); RED BLOOD COUNT 4.98 x10^6/uL (4.38-5.82); RED CELL DISTRIBUTION WIDTH 17.5 % (9.4-14.8)
[2018-03-22 05:38] LABS: ANION GAP 11 mmol/L (5-15); CALCIUM 9.2 mg/dL (8.5-10.1); CHLORIDE 108 mmol/L (98-107); CREATININE 1.26 mg/dL (0.7-1.3)
[2018-03-22] MEDS: LISINOPRIL 10 MG TABLET PO SCH (07:47)
[2018-03-22] MEDS: INSULIN LISPRO 100 UNITS/ML, PEN SQ-INSULIN SCH ×2 (07:54→11:00)
[2018-03-22] MEDS: INSULIN GLARGINE 100 UNITS/ML, PEN SQ-INSULIN SCH (07:54)
[2018-03-22] MEDS: FENOFIBRATE 145 MG TABLET PO SCH (07:55)
[2018-03-22] MEDS: ALLOPURINOL 300 MG TABLET PO SCH (07:55)
[2018-03-22] MEDS: DOXYCYCLINE 100MG TABLET PO SCH (07:55)
[2018-03-22] MEDS: CEFDINIR 300 MG CAPSULE PO SCH (07:55)
[2018-03-22] MEDS: TICAGRELOR 90 MG TABLET PO SCH (07:55)
[2018-03-22] MEDS: ASPIRIN 81 MG TABLET EC PO SCH (07:56)
[2018-03-22] MEDS: SODIUM CHLORIDE FLUSH 10ML SYR IVF SCH (08:03)
[2018-03-22] MEDS: ALBUTEROL/IPRATROPIUM 2.5MG/0.5MG, 3 ML NPPB SCH (08:30)
[2018-03-22 08:36] VITALS: BP 141/80
[2018-03-22] MEDS ORDERED: CEFD300C37 PO (09:52)
[2018-03-22] MEDS ORDERED: INSU100I13 SQ-INSULIN (09:52)
== END 2018-03-22 12:15 | DRG 193 ==
LOC: ED 02:27 → EDIP 03:29 → 5SO 04:12
PROVIDERS: ADMIT Internal Medicine; ATTEND Internal Medicine
DX: J10.00 Influenza due to other identified influenza virus with unspecified type of pneumonia (principal); N17.0 Acute kidney failure with tubular necrosis; I13.0 Hypertensive heart and chronic kidney disease with heart failure and stage 1 through stage 4 chronic kidney disease, or unspecified chronic kidney disease; E87.2 Acidosis; I50.40 Unspecified combined systolic (congestive) and diastolic (congestive) heart failure; J44.0 Chronic obstructive pulmonary disease with (acute) lower respiratory infection; N39.0 Urinary tract infection, site not specified; E44.1 Mild protein-calorie malnutrition; R19.7 Diarrhea, unspecified; E87.5 Hyperkalemia; B96.20 Unspecified Escherichia coli [E. coli] as the cause of diseases classified elsewhere; E78.00 Pure hypercholesterolemia, unspecified; E11.22 Type 2 diabetes mellitus with diabetic chronic kidney disease; E78.1 Pure hyperglyceridemia; E83.52 Hypercalcemia; E86.0 Dehydration; I25.10 Atherosclerotic heart disease of native coronary artery without angina pectoris; I27.20 Pulmonary hypertension, unspecified; M10.9 Gout, unspecified; N18.3 Chronic kidney disease, stage 3 (moderate); T38.0X5A Adverse effect of glucocorticoids and synthetic analogues, initial encounter; I25.2 Old myocardial infarction; Z79.4 Long term (current) use of insulin; Z79.82 Long term (current) use of aspirin; Z79.899 Other long term (current) drug therapy; Z82.49 Family history of ischemic heart disease and other diseases of the circulatory system; Z87.891 Personal history of nicotine dependence; Z95.0 Presence of cardiac pacemaker; Z95.5 Presence of coronary angioplasty implant and graft; Y92.89 Other specified places as the place of occurrence of the external cause; Z68.34 Body mass index [BMI] 34.0-34.9, adult
CPT/HCPCS: 36415; 71045; 76770; 78582; 80048; 80053; 81001; 82040; 82436; 82570; 82947; 82962; 83605; 83735; 83880; 84100; 84132; 84133; 84145; 84300; 84484; 85025; 85610; 85730; 87040; 87077; 87086; 87186; 87400; 93005; 93306; 94640; 99285; J0696; J1644; J1815; J3370; J7620; A9540; A9558; C9898; J1940; J2920; J7030; J7040; J7120; J7512

== ENCOUNTER 2018-10-10 13:07 | Emergency (ER) | payer OTHER, MEDICARE ==
[~2018-10-10] VITALS: Ht 193 cm; Wt 130.0 kg
[~2018-10-10 13:07] MED LIST changes: +APIX5TAB PO; -ASPI-621 PO; +ASPI81TA45 PO; +CEFD300C37 PO; +HYDR-3245 PO; +INSU100I17 INJ; +INSU100I28 INJ; +INSU100V13 SC; -IPRA3AMP NPPB; +IPRA3AMP30 NPPB; +LISI-167 PO; +METO25TA91 PO; +METO50TA4 PO; -SENN1TAB7 PO; +SENN1TAB8 PO; -SPIR25TA3 PO; +SPIR25TA5 PO
[2018-10-10 13:25] VITALS: BP 176/77
== END 2018-10-10 13:32 | disposition left against medical advice (07) ==
LOC: ED 13:26
DX: L98.9 Disorder of the skin and subcutaneous tissue, unspecified (principal); Z53.21 Procedure and treatment not carried out due to patient leaving prior to being seen by health care provider

== ENCOUNTER 2019-12-23 01:58 | Inpatient (IN) | payer BC, MEDICARE ==
[~2019-12-23] VITALS: Ht 193 cm; Wt 128.8 kg
[~2019-12-23 01:58] MED LIST changes: +ALLO300T PO; +ASPI-515 PO; +FENO145T19 PO; -FENO145T30 PO; +GABA300C10 PO; +INSU100V8 SQ; +LOSA50TA14 PO; +METF500T17 PO; +METO-99 PO; -ROSU10TA PO; +ROSU10TA2 PO; +SENN-177 PO; -SENN1TAB8 PO; +UMEC1DIS INH; +UMEC1DIS PO
[2019-12-23 02:47] LABS: MEAN CORPUSCULAR VOLUME 87.3 fL (81-97); MEAN PLATELET VOLUME 8.1 fL (7.4-10.4); PLATELET COUNT 387 x10^3/uL (130-400); RED BLOOD COUNT 4.89 x10^6/uL (4.38-5.82); RED CELL DISTRIBUTION WIDTH 16.1 % (9.4-14.8)
[2019-12-23 03:00] LABS: ALBUMIN 3.3 g/dL (3.4-5.0); ANION GAP 9 mmol/L (5-15); CALCIUM 9.4 mg/dL (8.5-10.1); CHLORIDE 97 mmol/L (98-107); CREATININE 0.83 mg/dL (0.7-1.3)
[2019-12-23] MEDS ORDERED: SODIUM CHLORIDE 0.9% 1,000ML IVBOLUS ONE ×2 (03:00→13:00)
[2019-12-23 03:04] LABS: TROPONIN I 0.064 ng/mL (0.000-0.045)
[2019-12-23 03:36] LABS: BASOPHILS # (AUTO) 0.02 x10^3/uL (0-0.1); BASOPHILS % (AUTO) 0 % (0-1); EOSINOPHILS % (AUTO) 0 % (1-7); LYMPHOCYTES # (AUTO) 0.77 x10^3/uL (1-3.4); LYMPHOCYTES % (AUTO) 3 % (22-44); MD SCAN; MONOCYTES # (AUTO) 1.03 x10^3/uL (0.2-0.8); MONOCYTES % (AUTO) 3 % (2-9); NEUTROPHILS # (AUTO) 28.32 x10^3/uL (1.8-6.8); NEUTROPHILS % (AUTO) 94 % (42-75)
--- NOTE | 2019-12-23 03:56 | NUR ---
Pt removed optiflow to blow nose and pulse ox dropped to 72% quickly. Encouraged patient to leave o2 in place, pt verbalized understanding.
[2019-12-23] MEDS ORDERED: morphine SULFATE 10 MG/ML, 1ML IVPush PRN (04:00)
[2019-12-23] MEDS ORDERED: AZITHROMYCIN 500 MG in SODIUM CHLORIDE 0.9% 250 ML IV SCH (04:00)
[2019-12-23] MEDS ORDERED: CEFTRIAXONE 1,000 MG IM SCH (04:00)
[2019-12-23] MEDS ORDERED: ONDANSETRON ODT 4 MG PO PRN (04:00)
[2019-12-23] MEDS ORDERED: OXYcodone IR 5MG TABLET PO PRN (04:00)
[2019-12-23] MEDS ORDERED: ACETAMINOPHEN 325 MG TABLET PO PRN (04:00)
[2019-12-23] MEDS ORDERED: CEFTRIAXONE PMX 1GM/50ML 50 ML IV SCH (04:30)
[2019-12-23 05:13] VITALS: BP 147/72
[2019-12-23] MEDS ORDERED: DIPH25TA65 PO (06:05)
[2019-12-23] MEDS ORDERED: GABA300S PO (06:05)
[2019-12-23 06:39] VITALS: BP 145/85
[2019-12-23] MEDS ORDERED: VANCOMYCIN PER PHARMACY MC PRN (07:30)
[2019-12-23] MEDS: ALBUTEROL/IPRATROPIUM 2.5MG/0.5MG, 3 ML NPPB SCH ×2 (08:07→10:56)
[2019-12-23] MEDS: PIPERACILLIN/TAZO/PMX 4.5GM 100 ML IV SCH ×3 (08:13→21:16)
[2019-12-23] MEDS ORDERED: PHARMACOKINETIC MONITORING MC PRN (08:30)
[2019-12-23] MEDS: INSULIN LISPRO 100 UNITS/ML, PEN SQ-INSULIN SCH ×4 (08:49→21:00)
[2019-12-23] MEDS ORDERED: ASPIRIN 81 MG TABLET EC PO SCH (09:00)
[2019-12-23] MEDS ORDERED: SPIRONOLACTONE 25 MG TABLET PO SCH (09:00)
[2019-12-23] MEDS ORDERED: LOSARTAN 50MG TABLET PO SCH (09:00)
[2019-12-23] MEDS ORDERED: ALLOPURINOL 300 MG TABLET PO SCH (09:00)
[2019-12-23] MEDS ORDERED: GABAPENTIN 300 MG CAPSULE PO SCH (09:00)
[2019-12-23] MEDS ORDERED: METOPROLOL TARTRATE 100 MG TAB PO SCH (09:00)
[2019-12-23] MEDS ORDERED: OXYcodone 5 MG/5 ML ORAL.SOL UDC NG PRN (11:59)
[2019-12-23] MEDS ORDERED: LOSARTAN 50MG TABLET NG SCH (12:01)
[2019-12-23] MEDS ORDERED: METOPROLOL TARTRATE 100 MG TAB NG SCH (12:02)
[2019-12-23] MEDS ORDERED: SPIRONOLACTONE 25 MG TABLET NG SCH (12:02)
[2019-12-23] MEDS ORDERED: INSULIN LISPRO 100 UNITS/ML, PEN SQ-INSULIN SCH (12:30)
[2019-12-23] MEDS ORDERED: NOREPINEPHRINE 8 MG in SODIUM CHLORIDE 0.9% 242 ML IV PRN ×2 (13:00→13:29)
[2019-12-23] MEDS: SODIUM CHLORIDE 0.9% 1,000 ML IV SCH ×2 (13:14→23:00)
[2019-12-23] MEDS ORDERED: LIDOCAINE-MPF 1%, 2ML ENDO PRN (13:30)
[2019-12-23] MEDS ORDERED: SODIUM CHLORIDE 0.9% 1,000 ML IV SCH (13:30)
[2019-12-23] MEDS ORDERED: FENTANYL PF 100 MCG/2ML IVPush PRN (13:30)
[2019-12-23] MEDS: HEPARIN 5,000 UNITS/ML, 1ML SQ SCH ×2 (13:48→21:19)
[2019-12-23] MEDS: FAMOTIDINE 20 MG/2 ML IV SCH (13:49)
[2019-12-23] MEDS: GABAPENTIN 250 MG/5 ML ORAL SOL NG SCH (14:22)
[2019-12-23] MEDS: VANCOMYCIN 2,000 MG in SODIUM CHLORIDE 0.9% 500 ML IV SCH (14:22)
[2019-12-23] MEDS: ALBUTEROL/IPRATROPIUM 2.5MG/0.5MG, 3 ML INLINE SCH ×3 (15:00→22:11)
[2019-12-23] MEDS: PROPOFOL 100 ML IV PRN (15:09)
[2019-12-23] MEDS ORDERED: ETOMIDATE 40 MG/20 ML ONE (16:02)
[2019-12-23] MEDS ORDERED: PROPOFOL 10 MG/ML, 100ML IV ONE (16:02)
[2019-12-23] MEDS ORDERED: MIDAZOLAM 1 MG/ML, 5ML ONE (16:02)
[2019-12-23] MEDS ORDERED: TEMPLATE NON-FORMULARY MED. (Rosuvastatin Calcium** (Crestor**) 10 MG) NG SCH (21:00)
[2019-12-24] MEDS: FAMOTIDINE 20 MG/2 ML IV SCH ×2 (01:49→12:56)
[2019-12-24] MEDS: ALBUTEROL/IPRATROPIUM 2.5MG/0.5MG, 3 ML INLINE SCH ×6 (02:39→22:09)
[2019-12-24] MEDS: PIPERACILLIN/TAZO/PMX 4.5GM 100 ML IV SCH ×4 (03:23→21:01)
[2019-12-24] MEDS: INSULIN LISPRO 100 UNITS/ML, PEN SQ-INSULIN SCH ×4 (03:31→21:24)
[2019-12-24] MEDS: PROPOFOL 100 ML IV PRN ×3 (03:33→12:22)
[2019-12-24 04:35] LABS: ANION GAP 9 mmol/L (5-15); CALCIUM 8.3 mg/dL (8.5-10.1); CHLORIDE 107 mmol/L (98-107)
[2019-12-24 04:37] LABS: MEAN CORPUSCULAR HEMOGLOBIN 28.2 pg (27.5-34.5); MEAN CORPUSCULAR HGB CONC 32.4 g/dL (33.2-36.2); MEAN PLATELET VOLUME 8.5 fL (7.4-10.4); PLATELET COUNT 287 x10^3/uL (130-400); RED BLOOD COUNT 3.76 x10^6/uL (4.38-5.82); RED CELL DISTRIBUTION WIDTH 16.6 % (9.4-14.8)
[2019-12-24 04:55] LABS: MD YES
[2019-12-24 04:57] LABS: ANISOCYTOSIS 1+; BAND#(MANUAL) 0.36 x10^3/uL; BANDS%(MANUAL) 2 % (0-7); LYMPH#(MANUAL) 1.43 x10^3/uL (1-3.4); LYMPHS% (MANUAL) 8 % (22-44); MONOS% (MANUAL) 5 % (2-9); SEG#(MANUAL) 15.22 x10^3/uL (1.8-6.8); SEGS% (MANUAL) 85 % (42-75)
[2019-12-24 04:58] LABS: <PLATELET ESTIMATE> ADEQUATE; <PLT MORPHOLOGY> NORMAL PLT MORPH
[2019-12-24] MEDS: HEPARIN 5,000 UNITS/ML, 1ML SQ SCH ×3 (05:53→21:25)
[2019-12-24] MEDS: SODIUM CHLORIDE 0.9% 1,000 ML IV SCH ×3 (07:55→21:00)
[2019-12-24] MEDS: GABAPENTIN 250 MG/5 ML ORAL SOL NG SCH (07:55)
[2019-12-24] MEDS: ALLOPURINOL 300 MG TABLET NG SCH (07:55)
[2019-12-24] MEDS: ASPIRIN 81 MG TABLET CHEW NG SCH (07:55)
--- NOTE | 2019-12-24 10:16 | NUR ---
TF GOAL with or without propofol: VITAL HIGH PROTEIN @ 80ML/HR
[2019-12-24] MEDS: VANCOMYCIN 2,000 MG in SODIUM CHLORIDE 0.9% 500 ML IV SCH (13:39)
[2019-12-24] MEDS ORDERED: MAGNESIUM SULFATE PMX 2GM/50ML 50 ML IV ONE (14:00)
[2019-12-25] MEDS: PROPOFOL 100 ML IV PRN ×4 (00:03→12:54)
[2019-12-25] MEDS: FAMOTIDINE 20 MG/2 ML IV SCH ×2 (00:45→13:26)
[2019-12-25] MEDS: ALBUTEROL/IPRATROPIUM 2.5MG/0.5MG, 3 ML INLINE SCH ×4 (02:30→14:45)
[2019-12-25] MEDS: PIPERACILLIN/TAZO/PMX 4.5GM 100 ML IV SCH ×2 (04:40→09:10)
[2019-12-25] MEDS: SODIUM CHLORIDE 0.9% 1,000 ML IV SCH (04:40)
[2019-12-25] MEDS: INSULIN LISPRO 100 UNITS/ML, PEN SQ-INSULIN SCH ×3 (04:40→15:18)
[2019-12-25] MEDS: HEPARIN 5,000 UNITS/ML, 1ML SQ SCH ×2 (05:23→13:26)
[2019-12-25 05:38] LABS: BASOPHILS # (AUTO) 0.01 x10^3/uL (0-0.1); BASOPHILS % (AUTO) 0 % (0-1); EOSINOPHILS # (AUTO) 0.04 x10^3/uL (0-0.4); EOSINOPHILS % (AUTO) 0 % (1-7); LYMPHOCYTES # (AUTO) 1.28 x10^3/uL (1-3.4); LYMPHOCYTES % (AUTO) 11 % (22-44); MD NO; MEAN CORPUSCULAR HEMOGLOBIN 27.8 pg (27.5-34.5); MEAN CORPUSCULAR HGB CONC 32.1 g/dL (33.2-36.2); MEAN CORPUSCULAR VOLUME 86.6 fL (81-97); MEAN PLATELET VOLUME 9.2 fL (7.4-10.4); MONOCYTES # (AUTO) 0.47 x10^3/uL (0.2-0.8); MONOCYTES % (AUTO) 4 % (2-9); NEUTROPHILS % (AUTO) 84 % (42-75); PLATELET COUNT 266 x10^3/uL (130-400); RED BLOOD COUNT 3.54 x10^6/uL (4.38-5.82); RED CELL DISTRIBUTION WIDTH 16.5 % (9.4-14.8)
[2019-12-25 05:39] LABS: ALBUMIN 2.2 g/dL (3.4-5.0); ANION GAP 9 mmol/L (5-15); CALCIUM 8.1 mg/dL (8.5-10.1); CHLORIDE 109 mmol/L (98-107)
[2019-12-25 05:43] LABS: ALANINE AMINOTRANSFERASE 62 U/L (12-78); ALKALINE PHOSPHATASE 89 U/L (45-117); BILIRUBIN,TOTAL 0.4 mg/dL (0.2-1.0); CREATININE 0.88 mg/dL (0.7-1.3); TOTAL PROTEIN 6.4 g/dL (6.4-8.2)
[2019-12-25] MEDS: ASPIRIN 81 MG TABLET CHEW NG SCH (09:10)
[2019-12-25] MEDS: GABAPENTIN 250 MG/5 ML ORAL SOL NG SCH (09:10)
[2019-12-25] MEDS: ALLOPURINOL 300 MG TABLET NG SCH (09:23)
[2019-12-25] MEDS: VANCOMYCIN 2,000 MG in SODIUM CHLORIDE 0.9% 500 ML IV SCH (14:09)
[2019-12-25] MEDS ORDERED: ONDANSETRON 2MG/ML, 2ML IVPush PRN (14:30)
[2019-12-25] MEDS ORDERED: LORazepam 2 MG/ML, 1ML IV ONE (14:30)
[2019-12-25] MEDS ORDERED: MORPHINE SULFATE 4 MG/ML, 1ML IVPush PRN (14:30)
[2019-12-25] MEDS ORDERED: SCOPOLAMINE 1MG PATCH TD PRN (14:30)
[2019-12-25] MEDS ORDERED: MORPHINE SULFATE 4 MG/ML, 1ML IV ONE (14:30)
[2019-12-25] MEDS ORDERED: LORazepam 2 MG/ML, 1ML IVPush PRN (14:30)
== END 2019-12-25 16:05 | disposition expired | DRG 871 ==
LOC: ED 02:15 → EDIP 03:34 → 4NW 05:02 → 4WST 10:04 → CCU 11:14
PROVIDERS: ADMIT Family Medicine; ATTEND Hospitalist
PROC: 02HV33Z Insertion of Infusion Device into Superior Vena Cava, Percutaneous Approach (ICD-10-PCS; principal; 2019-12-23)
PROC: B548ZZA Ultrasonography of Superior Vena Cava, Guidance (ICD-10-PCS; 2019-12-23)
PROC: 0BH17EZ Insertion of Endotracheal Airway into Trachea, Via Natural or Artificial Opening (ICD-10-PCS; 2019-12-23)
PROC: 0BJ08ZZ Inspection of Tracheobronchial Tree, Via Natural or Artificial Opening Endoscopic (ICD-10-PCS; 2019-12-23)
PROC: 5A1935Z Respiratory Ventilation, Less than 24 Consecutive Hours (ICD-10-PCS; 2019-12-23)
DX: A41.9 Sepsis, unspecified organism (principal); J96.01 Acute respiratory failure with hypoxia; I21.4 Non-ST elevation (NSTEMI) myocardial infarction; R65.21 Severe sepsis with septic shock; J15.212 Pneumonia due to Methicillin resistant Staphylococcus aureus; J96.02 Acute respiratory failure with hypercapnia; J44.1 Chronic obstructive pulmonary disease with (acute) exacerbation; E87.1 Hypo-osmolality and hyponatremia; I69.354 Hemiplegia and hemiparesis following cerebral infarction affecting left non-dominant side; Z99.11 Dependence on respirator [ventilator] status; I48.91 Unspecified atrial fibrillation; M10.9 Gout, unspecified; E11.42 Type 2 diabetes mellitus with diabetic polyneuropathy; Z66 Do not resuscitate; E11.40 Type 2 diabetes mellitus with diabetic neuropathy, unspecified; E11.51 Type 2 diabetes mellitus with diabetic peripheral angiopathy without gangrene; E78.5 Hyperlipidemia, unspecified; E83.41 Hypermagnesemia; D63.8 Anemia in other chronic diseases classified elsewhere; I25.10 Atherosclerotic heart disease of native coronary artery without angina pectoris; E78.00 Pure hypercholesterolemia, unspecified; I10 Essential (primary) hypertension; Z89.432 Acquired absence of left foot; I25.2 Old myocardial infarction; Z89.611 Acquired absence of right leg above knee; Z87.891 Personal history of nicotine dependence; Z79.899 Other long term (current) drug therapy; Z79.84 Long term (current) use of oral hypoglycemic drugs; Z79.4 Long term (current) use of insulin; Z89.511 Acquired absence of right leg below knee
CPT/HCPCS: 36415; 36600; 84145; 96361; 96374; 99291; J3490; 31622; 36573; 71045; 80048; 80053; 82040; 82533; 82803; 82962; 83605; 83735; 84478; 84484; 85025; 87070; 87077; 87081; 87147; 87186; 87205; 93005; 94002; 94003; 94640; G0378; J0456; J0696; J1644; J2250; J2543; J2704; J3370; C1751; J1815; J2060; J2270; J3475; J7030; J7040; J7050